=== PATIENT | female | born 1995 | race Caucasian/White ===

== ENCOUNTER → 2019-08-14 11:48 | Outpatient (CLI) | payer BC, OTHER, MEDICAID, SELFPAY | PROVIDERS: Visit Provider Nurse Practitioner | DX: N39.0 Urinary tract infection, site not specified (principal) | CPT/HCPCS: 87077; 87086; 87186 ==

== ENCOUNTER → 2019-08-24 10:11 | Outpatient (CLI) | payer OTHER, MEDICAID, SELFPAY ==
--- NOTE | 2019-08-24 10:13 | DI.US.S_ITS ---
PROCEDURE: US OB <= 14 WEEKS FETUS INDICATIONS: DATES OUTSIDE/PRIOR DATING DATA: Last menstrual period (LMP): 06/16/19. LMP-based estimated date of delivery (CORDELL): 03/22/20. First dating scan (date and location): 08/24/19. Estimated date of delivery (CORDELL) from first dating scan: 03/12/20. TECHNIQUE: Real-time scanning was performed of the fetus and maternal pelvic organs, with image documentation. Endovaginal scanning was also performed to better visualize the fetus and maternal ovaries. COMPARISON: None. FINDINGS: Embryo: Single living intrauterine fetus is present with a crown-rump length measuring 4.4 cm, 11 weeks 2 days. heart rate measures 135 beats per minute. Yolk sac visualized Measurement variability in dating: +/- 4 weeks by LMP, +/- 7 days by mean sac diameter (use before 6 weeks gestation if crown-rump length not able to be measured), +/- 5 days by crown-rump length (up to 8 weeks 6 days gestation), +/- 7 days by crown-rump length (up to 13 weeks 6 days gestation). Maternal organs: Ovaries grossly unremarkable except for a left-sided presumed corpus luteum. Limited images through the kidneys demonstrate no hydronephrosis. IMPRESSION: Single living intrauterine fetus with gestational age of 11 weeks and 2 days by today's ultrasound measurements corresponding to an CORDELL of 03/12/20, concordant with LMP above Dictated by: Geo Staton M.D. on 08/24/2019 at 12:18 Approved by: Geo Staton M.D. on 08/24/2019 at 12:21
[2019-08-24 12:32] LABS: Add Manual Diff / Slide Review NO; Basophils Absolute Auto 100 /uL (0-100); Basophils Percent Auto 0.5 % (0-2); Eosinophils Absolute Auto 100 /uL (0-450); Eosinophils Percent Auto 0.5 % (2-4); Hematocrit 36.6 % (36-46); Hemoglobin 12.5 g/dL (12.0-16.0); Lymphocytes Absolute Auto 2200 /uL (1100-4500); Lymphocytes Percent Auto 15.8 % (25-40); Mean Corpuscular HGB Conc 34.1 % (30-36); Mean Corpuscular Hemoglobin 31.2 PG (26-34); Mean Corpuscular Volume 91.4 fL (80-100); Monocytes Absolute Auto 700 /uL (0-900); Monocytes Percent Auto 4.7 % (3-14); Neutrophils Absolute Auto 11000 /uL (1500-7000); Neutrophils Percent Auto 78.5 % (50-75); Platelet Count 298 X10^3/uL (150-400); Red Blood Cell Count 4.01 X10^6/uL (4.0-5.2); Red Cell Distribution Width 13.1 % (11.6-14.8); White Blood Cell Count 14.1 X10^3/uL (4.5-11.0)
[2019-08-24 16:28] LABS: Hepatitis B Surface Antigen NEGATIVE s/c (NEGATIVE); Rubella Antibody IgG 24.1 IU/mL (>15)
[2019-08-24 17:42] LABS: HIV 1 & 2 Ab/Ag 4th Gen Combo NEGATIVE (NEGATIVE); Hep C Virus Ab w/Reflex Quant NEGATIVE s/c (NEGATIVE)
[2019-08-26 20:35] LABS: RPR Screen Nonreactive (Nonreactive)
== END ==
PROVIDERS: Referring Provider Family Medicine; Visit Provider Family Medicine
DX: Z34.01 Encounter for supervision of normal first pregnancy, first trimester (principal); Z3A.11 11 weeks gestation of pregnancy
CPT/HCPCS: 36415; 76801; 80055; 86787; 86803; 86850; 86900; 86901; 87389

== ENCOUNTER → 2019-08-25 16:50 | Outpatient (CLI) | payer BC, OTHER, MEDICAID, SELFPAY ==
[2019-08-25 18:15] LABS: Appearance Urine UA CLEAR; Bilirubin Urine UA NEGATIVE (NEGATIVE); Color Urine UA YELLOW; Glucose Urine UA NEGATIVE (Negative); Ketones Urine UA NEGATIVE (NEGATIVE); Leukocyte Esterase Urine UA NEGATIVE (NEGATIVE); Nitrite Urine UA NEGATIVE (Negative); Occult Blood Urine UA NEGATIVE (Negative); Protein Urine UA NEGATIVE (Negative); Specific Gravity Urine UA 1.015 (1.000-1.035); Urobilinogen Urine UA 0.2 E.U./dL (0.2)
== END ==
PROVIDERS: PCP Family Medicine; Referring Provider Family Medicine; Visit Provider Family Medicine
DX: Z34.01 Encounter for supervision of normal first pregnancy, first trimester (principal)
CPT/HCPCS: 81003; 87086

== ENCOUNTER → 2019-10-27 10:59 | Outpatient (CLI) | payer BC, OTHER, MEDICAID, SELFPAY ==
--- NOTE | 2019-10-27 11:04 | DI.US.S_ITS ---
PROCEDURE: US OB >= 14 WEEKS FETUS INDICATIONS: ANATOMY SCAN OUTSIDE/PRIOR DATING DATA: Last menstrual period (LMP): 06/16/19. LMP-based estimated date of delivery (CORDELL): 03/22/20. First dating scan (date and location): 08/24/19. Estimated date of delivery (CORDELL) from first dating scan: 03/12/20. TECHNIQUE: Real-time scanning was performed of the fetus, with image documentation and biometric measurements. Endovaginal scanning: Not needed. COMPARISON: None. FINDINGS: General: A single living intrauterine gestation is present. Presentation: Vertex. Placenta: Placental position is anterior, without previa. Amniotic fluid index: 13.8 cm, normal range is 5-24 cm. heart rate: 150 beats per minute. Maternal cervical canal: 5.0 cm long. Normal lower limit is 2.5 cm. biometrics: Biparietal diameter: 4.0 cm, 18 weeks 1 day Head circumference: 15.8 cm, 18 weeks 5 days Abdominal circumference: 14.8 cm, 20 weeks 1 day Femur length: 3.2 cm, 20 weeks 1 day Estimated gestational age from initial scan: 20 weeks 3 days Composite gestational age from present scan: 19 weeks 4 days Estimated weight and percentile: 319 g, 19th percentile Measurement variability for biometric dating: +/- 7 days from 14 weeks to 15 weeks 6 days gestation, +/- 10 days from 16 weeks to 21 weeks 6 days gestation, +/- 2 weeks from 22 weeks to 27 weeks 6 days gestation, +/- 3 weeks for 28 weeks gestation or later. weight reference: 4500 g or EFW >90/95% is considered macrosomia or large for gestational age. EFW <10% is small for gestational age. EFW 5% or less is considered intra-uterine growth restriction. Anatomic survey: Neuro: Ventricles are non-dilated at less than 10 mm. Cisterna magna is normal at 3-11 mm. Cerebellum is normal in size and morphology. Nuchal skin fold: Normal at less than 6 mm between 14-21 weeks gestational age. Face: Nose and lips, facial profile are normal. Spine: No evidence for spina bifida. Heart: 4-chambered heart is present, with normal ventricular outflow tracts. Diaphragm: Diaphragm is intact. Stomach: Left-sided stomach is present. Kidneys: No hydronephrosis. Normal is less than 5 mm in 2nd trimester, less than 7 mm in 3rd trimester. Cord: 3-vessel cord has orthotopic insertion. Bladder: Normal in size. Extremities: All 4 extremities identified. IMPRESSION: Single living intrauterine gestation with delivery date projected to be centered on 03/12/20, with normal survey of anatomy and appropriate interval growth. Dictated by: Dallin Zelaya M.D. on 10/27/2019 at 15:26 Approved by: Dallin Zelaya M.D. on 10/27/2019 at 15:36
== END ==
PROVIDERS: PCP Family Medicine; Referring Provider Family Medicine; Visit Provider Family Medicine
DX: Z36.89 Encounter for other specified antenatal screening (principal); Z3A.19 19 weeks gestation of pregnancy
CPT/HCPCS: 76811

== ENCOUNTER → 2019-11-04 14:38 | Outpatient (CLI) | payer OTHER, MEDICAID, SELFPAY ==
[2019-11-06 20:39] LABS: AFP, Serum 98.2 ng/mL (.); Calc Gestational Age Ultrasound (.); Estriol, Free 3.17 ng/mL (.); Inhibin A, Dimeric 355.58 pg/mL (.); Inhibin A, MoM 1.54 (.); Maternal Ethnicity Caucasian (.); Maternal Weight 167 lbs (.); Number of Fetuses No (.); OSBR Risk 1 IN 2523 (.); Results Report (.); Test Results *Screen Negative* (.); hCG, MoM 1.24 (.); hCG, Serum 27097 mIU/mL (.)
== END ==
PROVIDERS: PCP Family Medicine; Referring Provider Family Medicine; Visit Provider Family Medicine
DX: Z34.90 Encounter for supervision of normal pregnancy, unspecified, unspecified trimester (principal); Z3A.16 16 weeks gestation of pregnancy
CPT/HCPCS: 36415; 82105; 82677; 84702; 86336

== ENCOUNTER → 2019-12-09 14:16 | Outpatient (CLI) | payer OTHER, MEDICAID, SELFPAY ==
[2019-12-09 16:19] LABS: Hemoglobin 11.1 g/dL (12.0-16.0)
[2019-12-09 16:35] LABS: GTT (PREG) 1 Hour PP 50gm Dose 147 mg/dL (76-139)
== END ==
PROVIDERS: PCP Family Medicine; Referring Provider Family Medicine; Visit Provider Family Medicine
DX: Z34.90 Encounter for supervision of normal pregnancy, unspecified, unspecified trimester (principal); Z3A.26 26 weeks gestation of pregnancy
CPT/HCPCS: 36415; 82950; 85014; 85018

== ENCOUNTER → 2019-12-17 08:25 | Outpatient (CLI) | payer OTHER, MEDICAID, SELFPAY ==
[2019-12-17 09:59] LABS: Glucose Fasting Gestational 70 mg/dL (76-95)
[2019-12-17 11:50] LABS: Glucose 2 Hour Gest 104 mg/dL (76-155)
[2019-12-17 11:50] LABS: Glucose 1 Hour Gest 104 mg/dL (76-180)
[2019-12-17 12:04] LABS: Glucose Tol Interp,Gestational INTERPRETATION
[2019-12-17 13:15] LABS: Glucose 3 Hour Gest 61 mg/dL (76-140)
== END ==
PROVIDERS: PCP Family Medicine; Referring Provider Family Medicine; Visit Provider Family Medicine
DX: R73.09 Other abnormal glucose (principal)
CPT/HCPCS: 36415; 82951; 82952

== ENCOUNTER → 2020-02-18 14:12 | Outpatient (CLI) | payer OTHER, SELFPAY ==
[2020-02-19 14:13] LABS: Strep Grp B PCR NEG for Grp B Strep
== END ==
PROVIDERS: PCP Family Medicine; Visit Provider Family Medicine
DX: Z34.90 Encounter for supervision of normal pregnancy, unspecified, unspecified trimester (principal); Z3A.36 36 weeks gestation of pregnancy
CPT/HCPCS: 87653

== ENCOUNTER → 2020-03-15 14:53 | Outpatient (CLI) | payer OTHER, SELFPAY ==
[2020-03-16 10:07] LABS: COVID19 Sendout Not Detected (Not Detect)
== END ==
PROVIDERS: PCP Family Medicine; Visit Provider Nurse Practitioner
DX: Z11.59 Encounter for screening for other viral diseases (principal)
CPT/HCPCS: 87635

== ENCOUNTER 2020-03-17 18:03 | Inpatient (IN) | payer OTHER, SELFPAY ==
[2020-03-17 19:01] LABS: Add Manual Diff / Slide Review NO; Basophils Absolute Auto 100 /uL (0-100); Basophils Percent Auto 0.6 % (0-2); Eosinophils Absolute Auto 0 /uL (0-450); Eosinophils Percent Auto 0.5 % (2-4); Hematocrit 32.2 % (36-46); Hemoglobin 10.9 g/dL (12.0-16.0); Lymphocytes Absolute Auto 2200 /uL (1100-4500); Mean Corpuscular HGB Conc 33.9 % (30-36); Mean Corpuscular Hemoglobin 31.4 PG (26-34); Mean Corpuscular Volume 92.6 fL (80-100); Monocytes Absolute Auto 500 /uL (0-900); Monocytes Percent Auto 5.1 % (3-14); Neutrophils Absolute Auto 7100 /uL (1500-7000); Neutrophils Percent Auto 71.8 % (50-75); Platelet Count 229 X10^3/uL (150-400); Red Blood Cell Count 3.48 X10^6/uL (4.0-5.2); Red Cell Distribution Width 14.1 % (11.6-14.8); White Blood Cell Count 9.9 X10^3/uL (4.5-11.0)
[2020-03-17 19:06] VITALS: BP 133/88
[2020-03-17] MEDS: DINOPROSTONE VAG (CERVIDIL) 10 MG VAG (19:45)
[2020-03-17] MEDS: ZOLPIDEM 5 MG TABLET PO (22:08)
[2020-03-18] MEDS: ACETAMINOPHEN 325 MG TABLET 650 MG PO (04:11)
--- NOTE | 2020-03-18 07:35 | P.HPOB_ITS ---
OB HPI Date/Time Date of admission: 03/17/20 Date Patient Seen: 03/18/20 Time Patient Seen: 07:20 History of Present Condition Chief complaint: EVAL OF LABOR : 3 Para: 0 Estimated Date of Delivery: 03/12/20 Estimated Gestational Age (weeks): 40w6d Narrative: Crys Dahl is a 25 year old at 40 weeks and 6 days gestation here for post-dates induction. She received Cervidil overnight. complicated by depression. At the beginning of the she completed residential treatment for depression. Depression remained stable throughout the remainder of the . She quit smoking at the beginning of as well. Indications Indication for induction OB: post dates History of Present care: good care, initiated at week # (11), number of visits (14) and pounds weight gain (29) Dating criteria: based on 1st trimester US only Ultrasounds: normal 1st trimester US and normal mid trimester US Obstetrical complications: none Medical complications: none Preadmission Labs Blood type: A (+) positive -: Antibody screen: negative, GBS status: negative, HBsAG: negative, HIV: negative and RPR/VDLR: negative -: Chlamydia screen: not detected and Gonorrhea screen: not detected -: Rubella: immune and Varicella: immune HCT: 36.6 HCAB: negative Quad screen: Normal 1 hr GTT: 147 3 hr GTT: 1 hr (104), 2 hr (104) and 3 hr (61) Fasting blood glucose: 70 Prior (ies) History: 07/11/16 D&C at 12 weeks Medical Evaluation Evaluation Baseline heart rate: 150 Variability: Moderate (11-25) monitor accelerations: Present monitor decelerations: Absent Contraction Frequency (minutes): 2 Cervical dilation (cm): 2 Cervical effacement (%): 80 station: -2 Laboratory results: Laboratory Tests 03/17/20 03/17/20 18:40 18:40 WBC 9.9 RBC 3.48 L Hgb 10.9 L Hct 32.2 L MCV 92.6 MCH 31.4 MCHC 33.9 RDW 14.1 Plt Count 229 Neut % (Auto) 71.8 Lymph % (Auto) 22.0 L [place] % (Auto) 5.1 Eos % (Auto) 0.5 L Baso % (Auto) 0.6 Neut # (Auto) 7100 H Lymph # (Auto) 2200 [place] # (Auto) 500 Eos # (Auto) 0 Baso # (Auto) 100 Blood Type A Positive Antibody Screen Negative [facility] Medical History Anemia (Acute) Anxiety disorder (Acute) Major depression (Acute) Surgical History H/O dilation and curettage (Acute) Hx of tonsillectomy (Acute ~2017) [place] teeth removed (Acute ~2014) Family History Father Hyperlipidemia Hypertension Grandfather Bladder cancer Diabetes mellitus Hyperlipidemia Hypertension Grandmother Hypothyroidism Grandmother No known health problems Grandfather Hyperlipidemia Hypertension Heavy smoker Depression Family/Other Depression Social History marital status: unmarried,living together household members: significant other pets and animals: Yes (X 2 dogs ) education level: high school occupational status: unemployed current occupational exposures/hazards: No special tanvi needs: No Smoking Status: Former smoker second hand exposure: Yes alcohol intake: former substance use type: does not use Meds Home Medications and Allergies Home Medications Medication Instructions Recorded Confirmed Type ondansetron 4 mg disintegrating 4 mg PO Q8H #14 tab 08/14/19 03/17/20 Rx tablet prenat.vits,abraham,ryo-uldo-isvar 1 tab PO DAILY 08/21/19 03/17/20 History Allergies Allergy/AdvReac Type Severity Reaction Status Date / Time egg Allergy Severe rash, Verified 03/17/20 19:13 hives, diarrhea Review of Systems Review of Systems ROS: Yes All systems reviewed with the patient and are negative except as otherwise documented Exam Vital Signs (past 8 hours): Temperature 36.8? blood pressure 129/79 heart rate 75 respirations 18 Const General: healthy appearing and comfortable [facility] Head: normal to inspection Ears: hearing grossly normal bilaterally Nose: external nose normal Face and sinus: normal facial exam Mouth: oral mucosae normal Eyes General: appearance normal, both eyes and all related structures Neck Neck: normal visual inspection Resp Effort & Inspection: normal respiratory effort Auscultation: clear to auscultation bilaterally Cardio Rate: regular rate Rhythm: regular rhythm Heart Sounds: no murmurs GI Other: Gravid External Female Exam: normal external appearance Manual OB Exam: dilated 2, effaced (80) and station -2 Presentation: vertex Estimated Weight (lbs): 7 Back/Spine/Pelvis Back: normal to inspection Skin General: no rashes or lesions noted Extrem General: normal to inspection and no pedal edema Objective Labs Result Diagrams: 03/17/20 18:40 Labs: Laboratory Results - last 24 hr 03/17/20 03/17/20 18:40 18:40 WBC 9.9 RBC 3.48 L Hgb 10.9 L Hct 32.2 L MCV 92.6 MCH 31.4 MCHC 33.9 RDW 14.1 Plt Count 229 Neut % (Auto) 71.8 Lymph % (Auto) 22.0 L [place] % (Auto) 5.1 Eos % (Auto) 0.5 L Baso % (Auto) 0.6 Neut # (Auto) 7100 H Lymph # (Auto) 2200 [place] # (Auto) 500 Eos # (Auto) 0 Baso # (Auto) 100 Blood Type A Positive Antibody Screen Negative Assessment and Plan Assessment and Plan Assessment and Plan narrative: 25-year-old at 40 weeks and 6 days gestation admitted for post-dates induction. She progressed well with Cervidil overnight and Schmidt score is now 7. She is sandi spontaneously. GBS negative, COVID-19 negative. Plan Patient will shower and eat a light breakfast then start Pitocin per protocol Epidural upon request
[2020-03-18] MEDS: LACTATED RINGERS 1,000 ML 100 ML IV (08:00)
[2020-03-18] MEDS: OXYTOCIN PREMIX 30 UNIT/500 ML PLAST..BAG IV (08:53)
--- NOTE | 2020-03-18 16:05 | PM.OBPNLAB ---
Date/Time Date Patient Seen: 03/18/20 Time Patient Seen: 15:00 Pain Control Pain control: tolerating well and epidural Pelvic Exam Dilation (cm): 4 Effacement (%): 90 station: -2 Amniotic membrane status: Ruptured (small amount of clear fluid) Contractions Pitocin rate (mU/min): 18 Contraction frequency (min): 2 Contraction pattern: Regular Status status: Category l Heart Rate Baseline: 120 Monitor Accelerations: Present Monitor Decelerations: Absent Monitor Variability: Moderate Assessment and Plan Assessment: induction ongoing Plan: continuous present management Comments: Patient had a significant amount of bloody show with a moderate sized clot on the under pad. SVE with a bulging bag so blood not felt to be from rupture. AROM with a small amount of clear fluid which tolerated well. Continue pitocin.
--- NOTE | 2020-03-18 17:38 | PM.OBPNLAB ---
Date/Time Date Patient Seen: 03/18/20 Time Patient Seen: 17:15 Pain Control Pain control: epidural and other (Some lower abdominal pain/cramping) Pelvic Exam Dilation (cm): 5 Effacement (%): 100 station: -1 Amniotic membrane status: Ruptured (small amount of clear fluid) Contractions Pitocin rate (mU/min): 12 Contraction frequency (min): 2 Contraction pattern: Regular Status status: Category l Heart Rate Baseline: 120 Monitor Accelerations: Present Monitor Decelerations: Absent Monitor Variability: Moderate Assessment and Plan Assessment: induction ongoing Plan: continuous present management
[2020-03-18] MEDS: ONDANSETRON 4 MG/2 ML INJ IV (19:01)
[2020-03-18] MEDS: FENT 2MCG/ML BUPIV 0.125% EPI 200 MCG/100 ML PLAST..BAG 10 MCG EPIDURAL (19:05)
--- NOTE | 2020-03-18 21:01 | P.PCNOB_ITS ---
Labor & Delivery Delivery date: 03/18/20 Cervical ripening method: per Cervidil protocol Induction method: per pitocin protocol Delivery augmentation: rupture of membranes Delivery monitor: external FHT Route of delivery: L&D Laceration Description: None Estimated blood loss (mL): 150 Anesthesia type: Epidural Narrative: Patient is a 25-year-old at 40 weeks and 6 days gestation who gave on 03/17/20 at 20:45. CORDELL: 03/12/2020 Hospital problems: 40 weeks of Epidural analgesia STAGE I: Labor Patient received Cervidil for cervical ripening followed by Pitocin per protocol. Patient received an epidural with excellent pain control. Artificial rupture membranes occurred at 3:00 p.m. with a small amount of clear fluid. heart tones were category a 1 and 2 throughout stage I due to occasional variable decelerations. STAGE II: Delivery Patient was complete at 8:07 p.m. and began pushing at 8:15 p.m.. Spontaneous vaginal delivery occurred at 8:45 p.m.. Infant was vertex and BRINDA. There was a nuchal cord x1 which was reduced then remainder of infant delivered easily. was immediately placed on mother's abdomen. Cord was clamped and cut after several minutes delay. Apgars were 7 and 9 at 1 and 5 minutes respectively. No resuscitation of the required. STAGE III: Placenta/Cord Placenta delivered at 8:53 a.m. after active management and appeared intact with a three-vessel cord. Pitocin bolus given after delivery placenta. Placenta was noted to have diffuse calcifications. Fundus was firm well below umbilicus after delivery. There were no vaginal, cervical or perineal lacerations. EBL: 150 mL. Needle and sponge counts were correct. The vagina was inspected and no items were left in situ. Patient was doing well with [place], her and friend at bedside. [place] Baby 1: Infant gender: Female Presentation: vertex Placenta delivery description: Spontaneous cord vessel description: Nuchal Cord (x1, reduced) score (1 min): 7 score (5 min): 9
[2020-03-19] MEDS: IBUPROFEN 600 MG TABLET PO ×2 (03:42→16:29)
[2020-03-19] MEDS: PRENATAL VIT,CALC/IRON/FOLIC 1 TABLET 1 TAB PO (08:24)
[2020-03-19] MEDS: DOCUSATE 100 MG CAPSULE PO (08:24)
[2020-03-19] MEDS: ACETAMINOPHEN 325 MG TABLET 650 MG PO (08:25)
--- NOTE | 2020-03-19 09:41 | P.PNOB_ITS ---
Subjective - OB Subjective Patient comments: no complaints, pain well controlled and tolerating diet baby status: doing well and nursing well feeding status: exclusively breast feeding Date Patient Seen: 03/19/20 Time Patient Seen: 09:25 Interval history: Patient denies complaints this morning. She notes some cramping with breast-feeding which is tolerable. Pain controlled with Tylenol and ibuprofen. Bleeding is moderate. She is ambulating and voiding without difficulty. Some difficulty with breast-feeding however due to tongue tie. Exam Vital Signs (past 8 hours): Temperature 97.5 blood pressure 118/74 heart rate 63 Narrative Exam Narrative: General: Awake and alert, no acute distress. HEENT: NCAT, EOMI, moist oral mucosa CV: Regular rate and rhythm, no murmurs, rubs or gallops Lungs: CTAB, no wheezes, rales, or rhonchi Abdomen: Soft, nontender; bowel tones active; uterus firm 2 cm below umbilicus Extremities: Warm, no edema, 2+ pedal pulses bilaterally Objective Labs Result Diagrams: 03/17/20 18:40 Assessment & Plan Assessment and Plan (1) Spontaneous vaginal delivery: Status: Acute (2) 40 weeks gestation of : Status: Acute Plan day: 1 plan OB: routine care Comments: Doing well after uncomplicated vaginal delivery night. Routine care. Anticipate discharge home tomorrow. Time Spent With Patient Time: Total time spent is greater than 50% in coordination of care (as doc umented) at patient's floor/unit and/or counseling patient: Time with patient: 15-24 minutes
--- NOTE | 2020-03-20 07:57 | P.DS_ITS ---
Discharge Providers Provider Date of admission: 03/17/20 18:03 Discharge Date: 03/20/20 Primary care physician: Jacqueline Sadler DO Consults: 03/19/20 21:03 Consult to [employer] Routine Comment: Discharge provider: Jacqueline Sadler DO Summary Hospital Course Date Patient Seen: 03/20/20 Time Patient Seen: 08:58 Procedures: Spontaneous vaginal delivery Epidural analgesia Hospital Course: Patient is a 25-year-old now 1 after uncomplicated spontaneous vaginal delivery at 40 weeks and 6 days gestation on 03/18/20. Patient was brought in for post-dates induction and progressed after Cervidil and Pitocin. She received an epidural with excellent pain control and went on to deliver a vigorous female . There were no lacerations following delivery. course was uncomplicated. Vaginal bleeding was light to moderate and pain controlled with minimal ibuprofen. She was eating, ambulating, voiding and passing flatus. There was some difficulty with breast-feeding which improved after infant underwent a frenotomy. Advised patient to call for fevers, severe pain or bleeding through more than a pad an hour. She will follow-up in clinic in 6 weeks but we will also be seeing her when she brings in her period Peripartum Data Infant Delivery Method: Natural Vaginal Laceration Description: None complications: none [place] 1: Gender: Female Disposition of : home Discharge Diagnosis (1) Spontaneous vaginal delivery: Status: Acute (2) 40 weeks gestation of : Status: Acute Status at Discharge Cognitive/behavioral status at discharge: at baseline, oriented Overall status at discharge: patient is back to baseline Time Spent with Patient Time attestation: Total time spent providing and/or coordinating discharge servi abdias: Time spent: Less than 30 minutes Objective Labs Result Diagrams: 03/17/20 18:40 Exam Vital Signs (past 8 hours): Temperature 98.9? blood pressure 120/74 heart rate 73 resp irations 12 Narrative Exam Narrative: General: Awake and alert, no acute distress. HEENT: NCAT, EOMI, moist oral mucosa CV: Regular rate and rhythm, no murmurs, rubs or gallops Lungs: CTAB, no wheezes, rales, or rhonchi Abdomen: Soft, nontender; bowel tones active; uterus firm 2 cm below umbilicus Extremities: Warm, no edema Discharge Plan Discharge Plan Patient Disposition: Home Discharge orders & Medications Prescriptions: New docusate sodium [DOK] 100 mg Capsule 100 mg PO DAILY Qty: 30 RF: 0 ibuprofen 600 mg Tablet 600 mg PO Q6HR PRN (Reason: Pain, Mild (1-3)) Qty: 30 RF: 0 Continued ondansetron 4 mg tablet,disintegrating 4 mg PO Q8H Qty: 14 RF: 0 prenat.vits,abraham,gem-sldz-izvay Tablet 1 tab PO DAILY RF: 0 Follow up/Referrals: Jacqueline Sadler DO [Primary Care Provider] - Diet/Activity/Treatments Diet: Diet as Tolerated Skin/Wound/Dressing Care Report to your healthcare provider any signs of infection, such as:: chills, fever, night sweats, increased pain, unusual drainage and unusual redness Visit Report/Discharge Packet Visit Report Forms: Patient Portal/API, Stroke Signs & Symptoms Discharge Data Primary Care Provider: Jacqueline Sadler
[2020-03-20] MEDS: DOCUSATE 100 MG CAPSULE PO (09:10)
[2020-03-20] MEDS: PRENATAL VIT,CALC/IRON/FOLIC 1 TABLET 1 TAB PO (09:10)
[2020-03-20 10:16] VITALS: BP 127/84; PULSE 69; RESP 18; TEMP 36.9
== END 2020-03-20 11:38 | disposition home or self-care (01) | DRG 807 ==
PROVIDERS: Admitting Provider Family Medicine; PCP Family Medicine; Referring Provider Family Medicine; Visit Provider Family Medicine
DX: O48.0 Post-term pregnancy (principal); Z37.0 Single live birth; Z3A.40 40 weeks gestation of pregnancy; O99.344 Other mental disorders complicating childbirth
CPT/HCPCS: 01967; 59050; 59200; 59410; 85025; 86850; 86900; 86901; G0379; J2405; J2590

== ENCOUNTER 2020-03-23 21:37 | Emergency (ER) | payer OTHER, SELFPAY ==
[2020-03-23] VITALS (7 sets, daily range): BP systolic 124–137; BP diastolic 74–82; PULSE 64–87; RESP 15–36; TEMP 37.1; O2SAT 96–99; BMI 29.8
[2020-03-23] MEDS: SODIUM CHLORIDE 0.9% 1,000 ML 1000 ML IV (22:38)
[2020-03-23 22:41] LABS: Add Manual Diff / Slide Review NO; Basophils Absolute Auto 100 /uL (0-100); Eosinophils Absolute Auto 200 /uL (0-450); Eosinophils Percent Auto 2.2 % (2-4); Hematocrit 32.3 % (36-46); Lymphocytes Absolute Auto 1600 /uL (1100-4500); Lymphocytes Percent Auto 19.2 % (25-40); Mean Corpuscular Hemoglobin 31.7 PG (26-34); Mean Corpuscular Volume 93.2 fL (80-100); Monocytes Absolute Auto 400 /uL (0-900); Monocytes Percent Auto 5.3 % (3-14); Neutrophils Absolute Auto 5900 /uL (1500-7000); Neutrophils Percent Auto 72.3 % (50-75); Platelet Count 235 X10^3/uL (150-400); Red Blood Cell Count 3.46 X10^6/uL (4.0-5.2); Red Cell Distribution Width 14.3 % (11.6-14.8); White Blood Cell Count 8.1 X10^3/uL (4.5-11.0)
[2020-03-23 22:50] LABS: Alanine Aminotransferase 81 IU/L (<35); Albumin 3.7 g/dL (3.5-5.0); Albumin Globulin Ratio 1.2 (1.0-2.8); Alkaline Phosphatase 138 U/L (38-126); Aspartate Aminotransferase 58 IU/L (14-36); BUN Creatinine Ratio 17.9 (6-22); Bilirubin Total 0.4 mg/dL (0.2-1.3); Blood Urea Nitrogen 15 mg/dL (7-17); Calcium 8.5 mg/dL (8.4-10.2); Carbon Dioxide 24 mmol/L (22-32); Chloride 107 mmol/L (98-107); D Dimer 339 ng/mL (<230); Estimated Glomerular Filt Rate > 60.0 mL/min (>60); Glucose 72 mg/dL (70-100); HEMOLYSIS < 15 (0-50); Lipase 47 U/L (23-300); Potassium 3.6 mmol/L (3.4-5.1); Sodium 137 mmol/L (137-145); Total Protein 6.7 g/dL (6.3-8.2)
[2020-03-23 23:00] LABS: Bilirubin Urine UA NEGATIVE (NEGATIVE); Color Urine UA YELLOW; Glucose Urine UA NEGATIVE (Negative); Ketones Urine UA NEGATIVE (NEGATIVE); Leukocyte Esterase Urine UA 1+ (NEGATIVE); Nitrite Urine UA NEGATIVE (Negative); Occult Blood Urine UA 3+ (Negative); Protein Urine UA NEGATIVE (Negative); Specific Gravity Urine UA <=1.005 (1.000-1.035); Urobilinogen Urine UA 0.2 E.U./dL (0.2)
[2020-03-23 23:01] LABS: Appearance Urine UA Slightly Cloudy; RBC Urine 1-5/HPF (0-5/HPF); WBC Urine 1-5/HPF (0-5/HPF)
[2020-03-23 23:02] LABS: Troponin I < 0.012 ng/mL (0.01-0.034)
[2020-03-23 23:02] LABS: Bacteria Urine Few (2-10); Culture Indicated Urine Specimen Cultured; Squamous Epithelial Cell Urine 1-5 /HPF (0-5/HPF)
--- NOTE | 2020-03-23 23:19 | ED_ITS ---
HPI - Chest Pain General Chief Complaint: Chest Pain Stated Complaint: Chest Pain 5 days Time Seen by Provider: 03/23/20 21:41 Source: patient and family Mode of arrival: Ambulatory Limitations: no limitations History of Present Illness HPI narrative: 25-year-old 5 days after spontaneous vaginal delivery presents with substernal chest pain that is been present for 3 days and pain in the left breast that is been developing over the last 24 hours. No fevers, chills she does note some mild dyspnea when walking up stairs but otherwise is feeling well. Breast-feeding is going moderately well however she is having some difficulty with cracked nipples and does not appear to be latching come to the nipple. That is the problem with the left breast there is significant cracking and bleeding that breast is become quite engorged and she is trying to pump on that side with a manual hand pump. She describes no lower extremity edema and specifically no unilateral lower extremity edema. Related Data Home Medications Medication Instructions Recorded Confirmed prenat.vits,abraham,[id number] 1 tab PO DAILY 08/21/19 03/17/20 Previous Rx's Medication Instructions Recorded ondansetron 4 mg disintegrating 4 mg PO Q8H #14 tab 08/14/19 tablet docusate sodium [DOK] 100 mg PO DAILY #30 cap 03/20/20 ibuprofen 600 mg PO Q6HR PRN #30 tab 03/20/20 Allergies Allergy/AdvReac Type Severity Reaction Status Date / Time egg Allergy Severe rash, Verified 03/17/20 19:13 hives, diarrhea Review of Systems Review of Systems Narrative: Remainder of review of systems including constitutional, ENT, cardiovascular, respiratory, GI, , musculoskeletal, skin, neurologic and psychiatric systems reviewed and are unremarkable except as noted in HPI. Patient History Medical History Anemia (Acute) Anxiety disorder (Acute) Major depression (Acute) Spontaneous vaginal delivery (Acute) Surgical History H/O dilation and curettage (Acute) Hx of tonsillectomy (Acute ~2017) Leslie teeth removed (Acute ~2014) Family History Father Hyperlipidemia Hypertension Grandfather Bladder cancer Diabetes mellitus Hyperlipidemia Hypertension Grandmother Hypothyroidism Grandmother No known health problems Grandfather Hyperlipidemia Hypertension Heavy smoker Depression Family/Other Depression Social History marital status: unmarried,living together household members: significant other pets and animals: Yes (X 2 dogs ) education level: high school occupational status: unemployed current occupational exposures/hazards: No special tanvi needs: No Smoking Status: Former smoker second hand exposure: Yes alcohol intake: former substance use type: does not use Smoking Status: Former smoker Substance Use Type: does not use Exam Narrative Exam Narrative: General: Healthy appearing, in no acute distress. Able to give a complete and coherent history. Well-nourished well-developed HEENT: Moist mucous membranes, normal sclera with reactive pupils, Neck: No JVD, supple Respiratory: Lungs are clear to auscultation, no wheezing no rales no rhonchi. Full and symmetrical air movement Cardiac: Regular rate and rhythm no murmurs no bruits, she has no tenderness along the costochondral border Breasts: Mild nipple cracking on the right side, increased cracking and mild engorgement on the left side with no sign of acute mastitis with increased erythema or warmth Abdomen: Soft nontender good bowel tones, no flank pain Skin: Warm and dry, no rashes Neurologic: Grossly neurologically intact with no obvious asymmetries or abnormalities Extremities: No trauma, well perfused Psych: Cooperative, appropriate insight and affect Initial Vital Signs Initial Vital Signs: Vital Signs Pulse Rate 68 03/23/20 21:48 Blood Pressure 137/74 03/23/20 21:48 Pulse Oximetry 99 03/23/20 21:48 Scores ABCD2 Citation: Lancet. 2006Aug 10;369(4715):283-92. Validation and refinement of scores to predict very early stroke risk after transient ischaemic attack. Chung SC1, Galo PM, Beto MN, Jm MF, Arnoldo JS, Osvaldo AL, Anirudh S. Course Orders Ordered: ED Orders 03/23/20 21:40 EKG-12 Lead Stat 03/23/20 22:15 Urinalysis and Microscopic Stat Urine Culture Stat 03/23/20 22:30 Complete Blood Count AUTO DIFF Stat Comprehensive Metabolic Panel Stat D Dimer Stat Lipase Stat Troponin I Stat 03/23/20 22:43 Urinalysis Screen (Dip Only) Stat Discontinued Medications Sodium Chloride (Normal Saline 0.9%) 1,000 mls @ 1,000 mls/hr IV BOLUS ONE Stop: 03/23/20 23:14 Last Admin: 03/23/20 22:38 Dose: 1,000 mls/hr Documented by: [facility]H Vital Signs Vital signs: Vital Signs - 8 hr 03/23/20 21:48 03/23/20 21:57 03/23/20 22:11 Temperature 98.8 F Pulse Rate 68 68 64 Respiratory Rate 15 Blood Pressure 137/74 137/74 Pulse Oximetry 99 99 98 03/23/20 22:12 03/23/20 22:30 03/23/20 23:00 Temperature Pulse Rate 69 72 87 Respiratory Rate 27 H 21 36 H Blood Pressure 124/82 Pulse Oximetry 97 96 98 03/23/20 23:30 03/24/20 00:00 03/24/20 00:30 Temperature Pulse Rate 76 76 70 Respiratory Rate 16 33 H 18 Blood Pressure Pulse Oximetry 03/24/20 00:31 Temperature Pulse Rate 68 Respiratory Rate 17 Blood Pressure 127/59 L Pulse Oximetry 99 MDM - Chest Pain Medical Records Data Attestation: I reviewed the patient's medical records. Lab Data Attestation: I reviewed the patient's lab results. Result diagrams: 03/23/20 22:30 03/23/20 22:30 Labs: Lab Results 03/23/20 03/23/20 03/23/20 Range/Units 22:15 22:30 22:30 WBC 8.1 (4.5-11.0) X10^3/uL RBC 3.46 L (4.0-5.2) X10^6/uL Hgb 11.0 L (12.0-16.0) g/dL Hct 32.3 L (36-46) % MCV 93.2 (80-100) fL MCH 31.7 (26-34) PG MCHC 34.0 (30-36) % RDW 14.3 (11.6-14.8) % Plt Count 235 (150-400) X10^3/uL Neut % (Auto) 72.3 (50-75) % Lymph % (Auto) 19.2 L (25-40) % [place] % (Auto) 5.3 (3-14) % Eos % (Auto) 2.2 (2-4) % Baso % (Auto) 1.0 (0-2) % Neut # (Auto) 5900 (2677-6384) /uL Lymph # (Auto) 1600 (3424-0172) /uL [place] # (Auto) 400 (0-900) /uL Eos # (Auto) 200 (0-450) /uL Baso # (Auto) 100 (0-100) /uL D-Dimer 339 H (<230) ng/mL Sodium (137-145) mmol/L Potassium (3.4-5.1) mmol/L Chloride (98-107) mmol/L Carbon Dioxide (22-32) mmol/L BUN (7-17) mg/dL Creatinine (0.52-1.04) mg/dL Estimated GFR (>60) mL/min BUN/Creatinine Ratio (6-22) Glucose (70-100) mg/dL Calcium (8.4-10.2) mg/dL Total Bilirubin (0.2-1.3) mg/dL AST (14-36) IU/L ALT (<35) IU/L Alkaline Phosphatase (38-126) U/L Troponin I (0.01-0.034) ng/mL Total Protein (6.3-8.2) g/dL Albumin (3.5-5.0) g/dL Globulin (1.7-4.1) g/dL Albumin/Globulin Ratio (1.0-2.8) Lipase (23-300) U/L Urine Color Yellow Urine Appearance Slightly cloudy Urine pH 7.0 (4.5-8.0) Ur Specific [place] <=1.005 (1.000-1.035) Urine Protein Negative (Negative) Urine Glucose (UA) Negative (Negative) g/dL Urine Ketones Negative (NEGATIVE) Urine Occult Blood 3+ H (Negative) Urine Nitrate Negative (Negative) Urine Bilirubin Negative (NEGATIVE) Urine Urobilinogen 0.2 (0.2) E.U./dL Ur Leukocyte Esterase 1+ H (NEGATIVE) Urine RBC 1-5/hpf (0-5/HPF) Urine WBC 1-5/hpf (0-5/HPF) Ur Squamous Epith Cells 1-5 /hpf (0-5/HPF) Urine Bacteria Few (2-10) H (None) Ur Culture Indicated? Specimen cultured 03/23/20 Range/Units 22:30 WBC (4.5-11.0) X10^3/uL RBC (4.0-5.2) X10^6/uL Hgb (12.0-16.0) g/dL Hct (36-46) % MCV (80-100) fL MCH (26-34) PG MCHC (30-36) % RDW (11.6-14.8) % Plt Count (150-400) X10^3/uL Neut % (Auto) (50-75) % Lymph % (Auto) (25-40) % [place] % (Auto) (3-14) % Eos % (Auto) (2-4) % Baso % (Auto) (0-2) % Neut # (Auto) (6381-2988) /uL Lymph # (Auto) (8668-9420) /uL [place] # (Auto) (0-900) /uL Eos # (Auto) (0-450) /uL Baso # (Auto) (0-100) /uL D-Dimer (<230) ng/mL Sodium 137 (137-145) mmol/L Potassium 3.6 (3.4-5.1) mmol/L Chloride 107 (98-107) mmol/L Carbon Dioxide 24 (22-32) mmol/L BUN 15 (7-17) mg/dL Creatinine 0.84 (0.52-1.04) mg/dL Estimated GFR > 60.0 (>60) mL/min BUN/Creatinine Ratio 17.9 (6-22) Glucose 72 (70-100) mg/dL Calcium 8.5 (8.4-10.2) mg/dL Total Bilirubin 0.4 (0.2-1.3) mg/dL AST 58 H (14-36) IU/L ALT 81 H (<35) IU/L Alkaline Phosphatase 138 H (38-126) U/L Troponin I < 0.012 (0.01-0.034) ng/mL Total Protein 6.7 (6.3-8.2) g/dL Albumin 3.7 (3.5-5.0) g/dL Globulin 3.0 (1.7-4.1) g/dL Albumin/Globulin Ratio 1.2 (1.0-2.8) Lipase 47 (23-300) U/L Urine Color Urine Appearance Urine pH (4.5-8.0) Ur Specific [place] (1.000-1.035) Urine Protein (Negative) Urine Glucose (UA) (Negative) g/dL Urine Ketones (NEGATIVE) Urine Occult Blood (Negative) Urine Nitrate (Negative) Urine Bilirubin (NEGATIVE) Urine Urobilinogen (0.2) E.U./dL Ur Leukocyte Esterase (NEGATIVE) Urine RBC (0-5/HPF) Urine WBC (0-5/HPF) Ur Squamous Epith Cells (0-5/HPF) Urine Bacteria (None) Ur Culture Indicated? Urine Dip Bedside Urine Glucose Negative Bedside Urine Bilirubin - Negative Bedside Urine Ketone - Negative Urine Specific [place] 1.010 Bedside Urine Occult Blood +++ Bedside Urine pH 7.0 Bedside Urine Protein - Negative Bedside Urine Urobilinogen +/- 1mg Bedside Urine Nitrite - Negative Bedside Urine Leukocytes +++ 500 Esterase MDM Narrative Medical decision making narrative: Labs are reassuring. D-dimer is slightly elevated as would be expected 5 days . Without unilateral edema or tachycardia at baseline I do not suspect PE at this time. In watching her breast feed the physical contortion she is putting herself into to appropriately position herself rather than position the baby is likely the cause of her chest pain. We talked about continuing pumping and I did help her with latch and positioning of the child did seem to be doing better. Will encourage her to follow-up with her primary care physician. If she is continuing to have difficulty with breast-feeding would strongly encourage a consult. Discharge Plan Departure Patient Disposition: Home Clinical Impression: Chest pain, musculoskeletal, Difficulty of mother performing Instructions: DI for Atypical Chest Pain Activity Restrictions/Additional Instructions: Thank you for coming in today I think a lot of your chest pain is simply musculoskeletal from you trying to adjust to nurse your baby. Trying make a point of using all of your pillows and supports to adjust your baby so that you are in a comfortable position when you start breast feeding. You need to encourage your baby to latch onto the full areola and not just the tip of your nipple, this will help with the cracked painful bleeding nipples that you are currently experiencing. Using moist tea bags over nipples can sometimes help with the tenderness as well. Over the next 24 hours please make sure you are being aggressive about using your hand pump with your left breast so that it is not getting engorged but allowing that nipple time to heal before you try latching again. If things are continuing to be problematic, please contact your doctor and look into consultation I wish you the best Prescriptions: No Action ondansetron 4 mg tablet,disintegrating 4 mg PO Q8H Qty: 14 RF: 0 prenat.vits,abraham,[id number] Tablet 1 tab PO DAILY RF: 0 docusate sodium [DOK] 100 mg Capsule 100 mg PO DAILY Qty: 30 RF: 0 ibuprofen 600 mg Tablet 600 mg PO Q6HR PRN (Reason: Pain, Mild (1-3)) Qty: 30 RF: 0 Referrals: Jacqueline Sadler DO [Primary Care Provider] -
[2020-03-24] VITALS: PULSE 76; RESP 33
--- NOTE | 2020-03-24 | PC.NURSE ---
L&D RN at bedside to consult pt on breasfeeding and latching techniques.
[2020-03-24 00:30] VITALS: PULSE 70; RESP 18
[2020-03-24 00:31] VITALS: BP 127/59; PULSE 68; RESP 17; O2SAT 99
[2020-03-24 01:01] VITALS: TEMP 37.2
== END 2020-03-24 01:02 | disposition home or self-care (01) ==
PROVIDERS: Emergency Provider Emergency Medicine; PCP Family Medicine
DX: R07.89 Other chest pain (principal); Z39.1 Encounter for care and examination of lactating mother; R06.00 Dyspnea, unspecified
CPT/HCPCS: 36415; 80053; 81001; 81003; 83690; 84484; 85025; 85379; 87077; 87086; 93005; 96360; 96361; 99284

== ENCOUNTER → 2020-03-30 16:04 | Outpatient (CLI) | payer OTHER, SELFPAY | PROVIDERS: PCP Family Medicine; Visit Provider Physician Assistant | DX: O86.4 Pyrexia of unknown origin following delivery (principal); R50.9 Fever, unspecified | CPT/HCPCS: 87086 ==

== ENCOUNTER → 2020-09-06 11:26 | Outpatient (CLI) | payer OTHER, MEDICAID, SELFPAY ==
[2020-09-06 12:31] LABS: BUN Creatinine Ratio 29.2 (6-22); Blood Urea Nitrogen 19 mg/dL (7-17); Calcium 9.3 mg/dL (8.4-10.2); Chloride 102 mmol/L (98-107); Estimated Glomerular Filt Rate > 60.0 mL/min (>60); HEMOLYSIS < 15 (0-50); Potassium 4.1 mmol/L (3.4-5.1); Sodium 137 mmol/L (137-145)
[2020-09-06 12:36] LABS: Carbon Dioxide 31 mmol/L (22-32)
[2020-09-06 12:37] LABS: Glucose 83 mg/dL (70-100)
== END ==
PROVIDERS: PCP Family Medicine; Referring Provider Family Medicine; Visit Provider Family Medicine
DX: R63.1 Polydipsia (principal)
CPT/HCPCS: 36415; 80048

== ENCOUNTER → 2020-11-22 12:07 | Outpatient (CLI) | payer OTHER, SELFPAY | PROVIDERS: PCP Family Medicine; Visit Provider Physician Assistant | DX: L03.031 Cellulitis of right toe (principal) | CPT/HCPCS: 87070; 87075; 87077; 87147; 87186; 87205 ==

== ENCOUNTER → 2021-01-19 16:19 | Outpatient (CLI) | payer OTHER, MEDICAID, SELFPAY ==
[2021-01-19 16:35] LABS: Add Manual Diff / Slide Review NO; Basophils Absolute Auto 100 /uL (0-100); Basophils Percent Auto 0.7 % (0-2); Eosinophils Absolute Auto 100 /uL (0-450); Eosinophils Percent Auto 1.8 % (2-4); Hematocrit 39.9 % (36-46); Hemoglobin 13.5 g/dL (12.0-16.0); Lymphocytes Absolute Auto 2300 /uL (1100-4500); Lymphocytes Percent Auto 30.1 % (25-40); Mean Corpuscular HGB Conc 33.8 % (30-36); Mean Corpuscular Hemoglobin 31.2 PG (26-34); Mean Corpuscular Volume 92.3 fL (80-100); Monocytes Absolute Auto 400 /uL (0-900); Monocytes Percent Auto 5.2 % (3-14); Neutrophils Absolute Auto 4700 /uL (1500-7000); Neutrophils Percent Auto 62.2 % (50-75); Platelet Count 230 X10^3/uL (150-400); Red Blood Cell Count 4.33 X10^6/uL (4.0-5.2); Red Cell Distribution Width 13.9 % (11.6-14.8); White Blood Cell Count 7.6 X10^3/uL (4.5-11.0)
[2021-01-19 16:50] LABS: Alanine Aminotransferase 21 IU/L (<35); Albumin 4.6 g/dL (3.5-5.0); Albumin Globulin Ratio 1.5 (1.0-2.8); Alkaline Phosphatase 75 U/L (38-126); Aspartate Aminotransferase 27 IU/L (14-36); BUN Creatinine Ratio 22.1 (6-22); Bilirubin Total 0.5 mg/dL (0.2-1.3); Blood Urea Nitrogen 15 mg/dL (7-17); Calcium 9.3 mg/dL (8.4-10.2); Carbon Dioxide 24 mmol/L (22-32); Chloride 107 mmol/L (98-107); Estimated Glomerular Filt Rate > 60.0 mL/min (>60); Glucose 97 mg/dL (70-100); HEMOLYSIS < 15 (0-50); Lipase 58 U/L (23-300); Potassium 3.9 mmol/L (3.4-5.1); Sodium 138 mmol/L (137-145); Total Protein 7.6 g/dL (6.3-8.2)
== END ==
PROVIDERS: PCP Family Medicine; Referring Provider Physician Assistant; Visit Provider Physician Assistant
DX: R19.7 Diarrhea, unspecified (principal)
CPT/HCPCS: 36415; 80053; 83690; 85025; 87045; 87077; 87177; 87899

== ENCOUNTER 2021-01-20 07:48 | Emergency (ER) | payer OTHER, MEDICAID, SELFPAY ==
[2021-01-20 08:00] VITALS: BP 138/67; PULSE 60; RESP 20; TEMP 36.6; O2SAT 99
--- NOTE | 2021-01-20 10:04 | ED.ABDPAIN ---
HPI - Abdominal Pain General Chief Complaint: Abdominal Pain Stated Complaint: appendicitis possibly/stomach pain/nausea Time Seen by Provider: 01/20/21 08:27 Source: patient Mode of arrival: Ambulatory Limitations: no limitations History of Present Illness HPI narrative: Patient is a 25-year-old female who presents with right lower quadrant pain ongoing for last 2 days. This episode started in her umbilical area moved to her right lower side. She was seen and evaluated walk-in clinic yesterday she had blood work and pain intensified today so she was sent to the ED for further imaging. She denies any nausea vomiting. It does hurt when she moves. She has had some diarrhea over the last day as well but it seems to have gotten better. She denies any vaginal discharge. She states menstrual cycle is quite irregular and has an IUD. Related Data Home Medications Medication Instructions Recorded Confirmed levonorgestrel 20 mcg/24 hours (6 INTRAUTERINE 09/22/20 01/19/21 yrs) 52 mg intrauterine device (Mirena) Previous Rx's Medication Instructions Recorded sertraline 50 mg tablet 50 mg PO DAILY #30 tab 12/27/20 ondansetron 4 mg disintegrating 4 mg PO Q6-8H PRN #30 tab 01/19/21 tablet Allergies Allergy/AdvReac Type Severity Reaction Status Date / Time egg Allergy Severe rash, Verified 01/19/21 15:51 hives, diarrhea Review of Systems Review of Systems Narrative: GENERAL: Denies chills, fatigue, malaise, fever, sweats, travel HEENT: Denies sinus pain, ear pain, sore throat, difficulty swallowing, neck pain RESPIRATORY: Denies dyspnea, cough, wheezing, hemoptysis, sputum. CARDIOVASCULAR: Denies chest pain, palpitations, orthopnea, edema GASTROINTESTINAL: See HPI : Denies dysuria, frequency, incontinence, hematuria, urinary retention, flank pain. MUSCULOSKELETAL: Denies weakness, joint pain, or bony pain SKIN: No rash, no erythema, no pruritus NEUROLOGIC: Denies weakness, dizziness, headache, numbness, change in speech, confusion PSYCHIATRIC: No concerning psychosocial issues. 12 point review of systems is negative except for those stated above and HPI Patient History Medical History (Updated 01/20/21 @ 12:23 by Tati Montanez DO) Anemia Anxiety disorder Major depression Paronychia of toe Spontaneous vaginal delivery Surgical History H/O dilation and curettage Hx of tonsillectomy (~2017) [place] teeth removed (~2014) Family History Father Hyperlipidemia Hypertension Grandfather Bladder cancer Diabetes mellitus Hyperlipidemia Hypertension Grandmother Hypothyroidism Grandmother No known health problems Grandfather Hyperlipidemia Hypertension Heavy smoker Depression Family/Other Depression Social History marital status: unmarried,living together household members: significant other pets and animals: Yes (X 2 dogs ) education level: high school occupational status: unemployed current occupational exposures/hazards: No special tanvi needs: No Smoking Status: Former smoker second hand exposure: Yes alcohol intake: former substance use type: does not use Smoking Status: Former smoker alcohol intake frequency: a few times a month Substance Use Type: does not use Exam Initial Vital Signs Initial Vital Signs: Vital Signs Temperature 97.9 F 01/20/21 08:00 Pulse Rate 60 01/20/21 08:00 Respiratory Rate 20 01/20/21 08:00 Blood Pressure 138/67 01/20/21 08:00 Pulse Oximetry 99 01/20/21 08:00 GENERAL: Well-appearing, well-nourished and in no acute distress. HEENT: Head atraumatic,EOMI, pupils reactive, face symmetric, moist mucous membranes CARDIOVASCULAR: Regular rate and rhythm without murmurs, rubs or gallops. RESPIRATORY: Breath sounds equal bilaterally, no wheezes rales or rhonchi. ABDOMEN: Soft, mild tenderness right lower quadrant without guarding or rebound EXTREMITIES: Normal range of motion, no clubbing or edema. Neurovascularly intact NEUROLOGICAL: Alert and oriented x4.Normal gait and speech. SKIN: Warm, dry, no laceration, no petechiae, no rashes or lesions. Course Orders Ordered: ED Orders 01/20/21 10:11 CT abdomen pelvis w con Stat 01/20/21 10:22 COVID19 -Nasal swab/Pre-Proc Stat 01/20/21 11:11 US pelvic complete Stat Discontinued Medications Sodium Chloride (Normal Saline 0.9%) 1,000 mls @ 1,000 mls/hr IV BOLUS ONE Stop: 01/20/21 09:12 Last Infusion: 01/20/21 12:56 Dose: 0 mls/hr Documented by: Admin: 01/20/21 10:16 Dose: 1,000 mls/hr Documented by: KAT Ondansetron HCl (Ondansetron 4 Mg/2 Ml Inj) 4 mg IV NOW ONE Stop: 01/20/21 08:14 Last Admin: 01/20/21 10:16 Dose: 4 mg Documented by: KAT Vital Signs Vital signs: Vital Signs - 8 hr 01/20/21 12:56 Pulse Rate 53 L Respiratory Rate 16 Blood Pressure 111/78 Pulse Oximetry 98 MDM - Abdominal Pain Lab Data Result diagrams: 01/20/21 08:13 01/20/21 08:13 Labs: Lab Results 01/20/21 01/20/21 01/20/21 Range/Units 08:13 08:13 08:13 WBC 9.9 (4.5-11.0) X10^3/uL RBC 4.37 (4.0-5.2) X10^6/uL Hgb 13.5 (12.0-16.0) g/dL Hct 40.2 (36-46) % MCV 92.0 (80-100) fL MCH 30.8 (26-34) PG MCHC 33.5 (30-36) % RDW 13.5 (11.6-14.8) % Plt Count 224 (150-400) X10^3/uL Neut % (Auto) 72.7 (50-75) % Lymph % (Auto) 20.4 L (25-40) % [place] % (Auto) 5.4 (3-14) % Eos % (Auto) 0.9 L (2-4) % Baso % (Auto) 0.6 (0-2) % Neut # (Auto) 7200 H (5242-4436) /uL Lymph # (Auto) 2000 (9754-1296) /uL [place] # (Auto) 500 (0-900) /uL Eos # (Auto) 100 (0-450) /uL Baso # (Auto) 100 (0-100) /uL Sodium 139 (137-145) mmol/L Potassium 3.8 (3.4-5.1) mmol/L Chloride 105 (98-107) mmol/L Carbon Dioxide 26 (22-32) mmol/L BUN 17 (7-17) mg/dL Creatinine 0.73 (0.52-1.04) mg/dL Estimated GFR > 60.0 (>60) mL/min BUN/Creatinine Ratio 23.3 H (6-22) Glucose 78 (70-100) mg/dL Lactate 0.9 (0.7-2.1) mmol/L Calcium 9.1 (8.4-10.2) mg/dL Total Bilirubin 0.6 (0.2-1.3) mg/dL AST 28 (14-36) IU/L ALT 22 (<35) IU/L Alkaline Phosphatase 85 (38-126) U/L Total Protein 7.6 (6.3-8.2) g/dL Albumin 4.7 (3.5-5.0) g/dL Globulin 2.9 (1.7-4.1) g/dL Albumin/Globulin Ratio 1.6 (1.0-2.8) Lipase 48 (23-300) U/L Urine RBC (0-5/HPF) Urine WBC (0-5/HPF) Ur Squamous Epith Cells (0-5/HPF) Amorphous Sediment Urine Bacteria (None) Urine Mucus (Negative) Ur Culture Indicated? SARS-CoV-2 (PCR) (Negative) 01/20/21 01/20/21 Range/Units 09:45 10:22 WBC (4.5-11.0) X10^3/uL RBC (4.0-5.2) X10^6/uL Hgb (12.0-16.0) g/dL Hct (36-46) % MCV (80-100) fL MCH (26-34) PG MCHC (30-36) % RDW (11.6-14.8) % Plt Count (150-400) X10^3/uL Neut % (Auto) (50-75) % Lymph % (Auto) (25-40) % [place] % (Auto) (3-14) % Eos % (Auto) (2-4) % Baso % (Auto) (0-2) % Neut # (Auto) (6711-0146) /uL Lymph # (Auto) (7764-6550) /uL [place] # (Auto) (0-900) /uL Eos # (Auto) (0-450) /uL Baso # (Auto) (0-100) /uL Sodium (137-145) mmol/L Potassium (3.4-5.1) mmol/L Chloride (98-107) mmol/L Carbon Dioxide (22-32) mmol/L BUN (7-17) mg/dL Creatinine (0.52-1.04) mg/dL Estimated GFR (>60) mL/min BUN/Creatinine Ratio (6-22) Glucose (70-100) mg/dL Lactate (0.7-2.1) mmol/L Calcium (8.4-10.2) mg/dL Total Bilirubin (0.2-1.3) mg/dL AST (14-36) IU/L ALT (<35) IU/L Alkaline Phosphatase (38-126) U/L Total Protein (6.3-8.2) g/dL Albumin (3.5-5.0) g/dL Globulin (1.7-4.1) g/dL Albumin/Globulin Ratio (1.0-2.8) Lipase (23-300) U/L Urine RBC 5-10/hpf H (0-5/HPF) Urine WBC 5-10/hpf H (0-5/HPF) Ur Squamous Epith Cells 10-30 /hpf H D (0-5/HPF) Amorphous Sediment 2+ Urine Bacteria Moderate (10-30) H (None) Urine Mucus 1+ H (Negative) Ur Culture Indicated? Cult not indicated SARS-CoV-2 (PCR) Negative (Negative) Point of care testing: Point of Care Testing Test Results Negative Urine Dip Bedside Urine Glucose Negative Bedside Urine Bilirubin - Negative Bedside Urine Ketone - Negative Urine Specific [place] 1.030 Bedside Urine Occult Blood +++ Bedside Urine pH 6.0 Bedside Urine Protein - Negative Bedside Urine Urobilinogen - Negative Bedside Urine Nitrite - Negative Bedside Urine Leukocytes - Negative Esterase Imaging Data CT scan - abdomen/pelvis: Radiologist's Impression: PROCEDURE: CT ABDOMEN PELVIS W CON INDICATIONS: right lower quad pain TECHNIQUE: After the administration of intravenous contrast, axial sections acquired from the lung bases to the pubic symphysis. Coronal and sagittal reformats were performed. For radiation dose reduction, the following was used: automated exposure control, adjustment of mA and/or kV according to patient size. COMPARISON: None. FINDINGS: Image quality: Excellent. Lung bases: Unremarkable. Heart: No significant findings. ABDOMEN: Liver: Unremarkable. Gallbladder: Unremarkable. Biliary ducts: Unremarkable. Pancreas: Unremarkable. Spleen: Unremarkable. Adrenal Glands: Unremarkable. Kidneys and Ureters: Unremarkable. Stomach and Bowel: Stomach, small bowel loops, and colon are unremarkable. Normal appendix. Peritoneum: No abnormal intraperitoneal fluid. No free air. Ventral Wall: No hernias. Abdominal Nodes: No retroperitoneal or mesenteric adenopathy by size criteria. Vessels: Aorta and inferior vena cava are normal in size. PELVIS: Pelvic Organs: The ovaries are normal size. There is a partially decompressed, peripherally hypervascular nodule measuring roughly 1.7 cm associated with the right ovary. There is an IUD within the uterus which is seated obliquely but remains within the endometrium. Bladder: The urinary bladder wall is moderately circumferentially thickened. No perivesicular inflammation or mucosal hyperemia. Pelvic Nodes: No enlarged lymph nodes. Miscellaneous: No hernias are seen. Bones: . Bilateral L5 pars defects. No anterolisthesis. IMPRESSION: 1. Probable involuting, possibly hemorrhagic right ovarian corpus luteum. 2. Slightly oblique orientation of the IUD but contained appropriately within the endometrium. 3. Normal appendix. Dictated by: Britany Lundberg M.D. on 01/20/2021 at 10:56 PROCEDURE: CT ABDOMEN PELVIS W CON INDICATIONS: right lower quad pain TECHNIQUE: After the administration of intravenous contrast, axial sections acquired from the lung bases to the pubic symphysis. Coronal and sagittal reformats were performed. For radiation dose reduction, the following was used: automated exposure control, adjustment of mA and/or kV according to patient size. COMPARISON: None. FINDINGS: Image quality: Excellent. Lung bases: Unremarkable. Heart: No significant findings. ABDOMEN: Liver: Unremarkable. Gallbladder: Unremarkable. Biliary ducts: Unremarkable. Pancreas: Unremarkable. Spleen: Unremarkable. Adrenal Glands: Unremarkable. Kidneys and Ureters: Unremarkable. Stomach and Bowel: Stomach, small bowel loops, and colon are unremarkable. Normal appendix. Peritoneum: No abnormal intraperitoneal fluid. No free air. Ventral Wall: No hernias. Abdominal Nodes: No retroperitoneal or mesenteric adenopathy by size criteria. Vessels: Aorta and inferior vena cava are normal in size. PELVIS: Pelvic Organs: The ovaries are normal size. There is a partially decompressed, peripherally hypervascular nodule measuring roughly 1.7 cm associated with the right ovary. There is an IUD within the uterus which is seated obliquely but remains within the endometrium. Bladder: The urinary bladder wall is moderately circumferentially thickened. No perivesicular inflammation or mucosal hyperemia. Pelvic Nodes: No enlarged lymph nodes. Miscellaneous: No hernias are seen. Bones: . Bilateral L5 pars defects. No anterolisthesis. IMPRESSION: 1. Probable involuting, possibly hemorrhagic right ovarian corpus luteum. 2. Slightly oblique orientation of the IUD but contained appropriately within the endometrium. 3. Normal appendix. Dictated by: Britany Lundberg M.D. on 01/20/2021 at 10:56 US - [place] OPERATOR: Radiologist's Impression: PROCEDURE: US PELVIC COMPLETE INDICATIONS: RIGHT OVARIAN CYST TECHNIQUE: Real-time scanning was performed of the pelvic organs, with image documentation. Additional endovaginal scanning was necessary due to incomplete visualization of the adnexal and endometrial structures by transabdominal scanning. COMPARISON: [facility], CT, CT ABDOMEN PELVIS W CON, 01/20/2021, 10:42. FINDINGS: Uterus: Uterus is normal in size at 3.6 x 5.8 x 8.4 cm. The endometrium measures 6.4 mm in combined thickness. Centrally positioned IUD is low adjacent to the lower uterine segment.. Ovaries: The right ovary measures 2.2 x 3.3 x 4.6 cm and contains a complex structure that likely is a hemorrhagic ovarian cyst measuring up to 1.6 x 1.3 x 1.7 cm with internal echogenic content. This likely is involuting. It demonstrates vascular periphery. The left ovary measures 3.5 x 1.8 x 2.6 cm. Other: No pathologic free abdominal or pelvic fluid. IMPRESSION: Presumed involuting right ovarian hemorrhagic cyst. IUD in place, centrally positioned but low within the area adjacent to the lower uterine segment. Dictated by: Dallin Zelaya M.D. on 01/20/2021 at 12:38 MDM Narrative Medical decision making narrative: The patient overall appears will. No leukocytosis ovarian cyst found on the right. Recommend outpatient follow-up. She actually does not he did request anything for pain in the emergency department. Discharge Plan Departure Patient Disposition: Home Clinical Impression: Ovarian cyst Qualifiers: Laterality: right Qualified Code(s): N83.201 - Unspecified ovarian cyst, right side Instructions: DI for Ovarian Cyst Activity Restrictions/Additional Instructions: *You have been diagnosed with right ovarian cyst *What to do: At this time no sign of appendicitis. Please have repeat ultrasound in about 6-8 weeks for follow-up *Continue to take medications as directed Ibuprofen 800 mg every 8 hours if needed for [id number] pain Tylenol 1000 mg every 6 hours if needed for [id number] pain *Follow up with your primary care provider in 2-3 days *Return to ER if you should have increasing pain,, persistent vomiting, worsening diarrhea, dizziness, lightheaded or any new, worsening or concerning symptoms Prescriptions: No Action Mirena 20 mcg/24 hours (6 yrs) 52 mg intrauterine device intrauterine RF: 0 ondansetron 4 mg tablet,disintegrating 4 mg PO Q6-8H PRN (Reason: nausea and vomiting) Qty: 30 RF: 0 sertraline 50 mg tablet 50 mg PO DAILY Qty: 30 RF: 2 Referrals: Jacqueline Sadler DO [Primary Care Provider] -
[2021-01-20 10:06] LABS: Amorphous Sediment Urine 2+; Bacteria Urine Moderate (10-30); Mucus Urine 1+ (Negative); RBC Urine 5-10/HPF (0-5/HPF); Squamous Epithelial Cell Urine 10-30 /HPF (0-5/HPF); WBC Urine 5-10/HPF (0-5/HPF)
[2021-01-20 10:07] LABS: Culture Indicated Urine Cult Not Indicated
--- NOTE | 2021-01-20 10:11 | DI.CT.S_ITS ---
PROCEDURE: CT ABDOMEN PELVIS W CON INDICATIONS: right lower quad pain TECHNIQUE: After the administration of intravenous contrast, axial sections acquired from the lung bases to the pubic symphysis. Coronal and sagittal reformats were performed. For radiation dose reduction, the following was used: automated exposure control, adjustment of mA and/or kV according to patient size. COMPARISON: None. FINDINGS: Image quality: Excellent. Lung bases: Unremarkable. Heart: No significant findings. ABDOMEN: Liver: Unremarkable. Gallbladder: Unremarkable. Biliary ducts: Unremarkable. Pancreas: Unremarkable. Spleen: Unremarkable. Adrenal Glands: Unremarkable. Kidneys and Ureters: Unremarkable. Stomach and Bowel: Stomach, small bowel loops, and colon are unremarkable. Normal appendix. Peritoneum: No abnormal intraperitoneal fluid. No free air. Ventral Wall: No hernias. Abdominal Nodes: No retroperitoneal or mesenteric adenopathy by size criteria. Vessels: Aorta and inferior vena cava are normal in size. PELVIS: Pelvic Organs: The ovaries are normal size. There is a partially decompressed, peripherally hypervascular nodule measuring roughly 1.7 cm associated with the right ovary. There is an IUD within the uterus which is seated obliquely but remains within the endometrium. Bladder: The urinary bladder wall is moderately circumferentially thickened. No perivesicular inflammation or mucosal hyperemia. Pelvic Nodes: No enlarged lymph nodes. Miscellaneous: No hernias are seen. Bones: . Bilateral L5 pars defects. No anterolisthesis. IMPRESSION: 1. Probable involuting, possibly hemorrhagic right ovarian corpus luteum. 2. Slightly oblique orientation of the IUD but contained appropriately within the endometrium. 3. Normal appendix. Dictated by: Britany Lundberg M.D. on 01/20/2021 at 10:56 Approved by: Britany Lundberg M.D. on 01/20/2021 at 11:01
[2021-01-20] MEDS: ONDANSETRON 4 MG/2 ML INJ IV (10:16)
[2021-01-20] MEDS: SODIUM CHLORIDE 0.9% 1,000 ML 1000 ML IV (10:16)
[2021-01-20 10:24] VITALS: BP 130/62; PULSE 51; RESP 16; O2SAT 99
[2021-01-20 10:38] LABS: Add Manual Diff / Slide Review NO; Basophils Absolute Auto 100 /uL (0-100); Basophils Percent Auto 0.6 % (0-2); Eosinophils Absolute Auto 100 /uL (0-450); Eosinophils Percent Auto 0.9 % (2-4); Hematocrit 40.2 % (36-46); Hemoglobin 13.5 g/dL (12.0-16.0); Lymphocytes Absolute Auto 2000 /uL (1100-4500); Lymphocytes Percent Auto 20.4 % (25-40); Mean Corpuscular HGB Conc 33.5 % (30-36); Mean Corpuscular Hemoglobin 30.8 PG (26-34); Monocytes Absolute Auto 500 /uL (0-900); Monocytes Percent Auto 5.4 % (3-14); Neutrophils Absolute Auto 7200 /uL (1500-7000); Neutrophils Percent Auto 72.7 % (50-75); Platelet Count 224 X10^3/uL (150-400); Red Blood Cell Count 4.37 X10^6/uL (4.0-5.2); Red Cell Distribution Width 13.5 % (11.6-14.8); White Blood Cell Count 9.9 X10^3/uL (4.5-11.0)
[2021-01-20 10:46] LABS: Alanine Aminotransferase 22 IU/L (<35); Albumin 4.7 g/dL (3.5-5.0); Albumin Globulin Ratio 1.6 (1.0-2.8); Alkaline Phosphatase 85 U/L (38-126); Aspartate Aminotransferase 28 IU/L (14-36); BUN Creatinine Ratio 23.3 (6-22); Bilirubin Total 0.6 mg/dL (0.2-1.3); Blood Urea Nitrogen 17 mg/dL (7-17); Calcium 9.1 mg/dL (8.4-10.2); Carbon Dioxide 26 mmol/L (22-32); Chloride 105 mmol/L (98-107); Estimated Glomerular Filt Rate > 60.0 mL/min (>60); Globulin 2.9 g/dL (1.7-4.1); HEMOLYSIS < 15 (0-50); Lactate (Lactic Acid) 0.9 mmol/L (0.7-2.1); Lipase 48 U/L (23-300); Potassium 3.8 mmol/L (3.4-5.1); Sodium 139 mmol/L (137-145); Total Protein 7.6 g/dL (6.3-8.2)
[2021-01-20 11:02] LABS: Glucose 78 mg/dL (70-100)
[2021-01-20 11:04] LABS: COVID19 -Nasal RAPID Negative (Negative)
--- NOTE | 2021-01-20 11:11 | DI.US.S_ITS ---
PROCEDURE: US PELVIC COMPLETE INDICATIONS: RIGHT OVARIAN CYST TECHNIQUE: Real-time scanning was performed of the pelvic organs, with image documentation. Additional endovaginal scanning was necessary due to incomplete visualization of the adnexal and endometrial structures by transabdominal scanning. COMPARISON: [facility], CT, CT ABDOMEN PELVIS W CON, 01/20/2021, 10:42. FINDINGS: Uterus: Uterus is normal in size at 3.6 x 5.8 x 8.4 cm. The endometrium measures 6.4 mm in combined thickness. Centrally positioned IUD is low adjacent to the lower uterine segment.. Ovaries: The right ovary measures 2.2 x 3.3 x 4.6 cm and contains a complex structure that likely is a hemorrhagic ovarian cyst measuring up to 1.6 x 1.3 x 1.7 cm with internal echogenic content. This likely is involuting. It demonstrates vascular periphery. The left ovary measures 3.5 x 1.8 x 2.6 cm. Other: No pathologic free abdominal or pelvic fluid. IMPRESSION: Presumed involuting right ovarian hemorrhagic cyst. IUD in place, centrally positioned but low within the area adjacent to the lower uterine segment. Dictated by: Dallin Zelaya M.D. on 01/20/2021 at 12:38 Approved by: Dallin Zelaya M.D. on 01/20/2021 at 12:41
[2021-01-20 12:56] VITALS: BP 111/78; PULSE 53; RESP 16; O2SAT 98
== END 2021-01-20 12:57 | disposition home or self-care (01) ==
PROVIDERS: Emergency Provider Emergency Medicine; PCP Family Medicine
DX: N83.201 Unspecified ovarian cyst, right side (principal); Z20.822 Contact with and (suspected) exposure to COVID-19
CPT/HCPCS: 36415; 74177; 76830; 76856; 80053; 81003; 81015; 81025; 83605; 83690; 85025; 87635; 96361; 96374; 99284; C9803; J2405

== ENCOUNTER → 2021-04-28 11:54 | Outpatient (CLI) | payer OTHER, MEDICAID, SELFPAY ==
[2021-04-28 13:35] LABS: COVID19 -Nasal RAPID Negative (Negative)
== END ==
PROVIDERS: PCP Family Medicine; Referring Provider Nurse Practitioner; Visit Provider Nurse Practitioner
DX: Z20.822 Contact with and (suspected) exposure to COVID-19 (principal); R06.02 Shortness of breath; R09.81 Nasal congestion; R53.83 Other fatigue
CPT/HCPCS: 87635

== ENCOUNTER → 2022-10-12 09:27 | Outpatient (CLI) | payer OTHER, SELFPAY ==
[2022-10-12 10:12] LABS: Influenza A - CEPHEID Flu A NEGATIVE (NEGATIVE); Influenza B - CEPHEID Flu B NEGATIVE (NEGATIVE)
[2022-10-12 10:24] LABS: COVID-19 CEPHEID 4-PLEX PCR POSITIVE (Negative)
== END ==
PROVIDERS: PCP Family Medicine; Visit Provider Family Medicine
DX: U07.1 COVID-19 (principal); R09.89 Other specified symptoms and signs involving the circulatory and respiratory systems; R52 Pain, unspecified; R68.83 Chills (without fever); Z20.822 Contact with and (suspected) exposure to COVID-19
CPT/HCPCS: 0240U

== ENCOUNTER 2022-11-25 11:38 | Emergency (ER) | payer OTHER, SELFPAY ==
[2022-11-25 11:44] VITALS: BP 137/75; PULSE 87; RESP 20; TEMP 36.3; O2SAT 97; BMI 26.6
--- NOTE | 2022-11-25 11:56 | ED.WOUNDLAC ---
HPI - Wound/Laceration General Chief Complaint: Wound/Laceration Stated Complaint: lt hand pointer finger cut open by scissors, bleed Time Seen by Provider: 11/25/22 11:49 Source: patient Mode of arrival: Ambulatory History of Present Illness HPI narrative: Patient is a 27-year-old female here for evaluation of a cut to the tip of her left index finger. She cut it on a pair of scissors prior to arrival. Related Data Previous Rx's Medication Instructions Recorded levonorgestrel 0.15 mg-ethinyl 1 tab PO DAILY #273 ea 09/10/22 estradiol 30 mcg tablets,3 mos pack(91) sertraline 100 mg tablet See Rx Instructions .Route 11/06/22 .COMPLEX #30 tabs Allergies Allergy/AdvReac Type Severity Reaction Status Date / Time No Known Drug Allergies Allergy Verified 11/25/22 11:49 Review of Systems Integumentary/Breasts Skin/Breast: Reports system reviewed and no additional complaints, except as documented Neurologic Neurologic: Reports system reviewed and no additional complaints, except as documented Hematologic/Lymphatic Hematologic/Lymphatic: Reports system reviewed and no additional complaints, except as documented Patient History Medical History Anemia Anxiety disorder Major depression Spontaneous vaginal delivery Surgical History H/O dilation and curettage Hx of tonsillectomy (~2017) [place] teeth removed (~2014) Family History Father Hyperlipidemia Hypertension Grandfather Bladder cancer Diabetes mellitus Hyperlipidemia Hypertension Grandmother Hypothyroidism Grandmother No known health problems Grandfather Hyperlipidemia Hypertension Heavy smoker Depression Family/Other Depression Social History marital status: unmarried,single number of children: 1 household members: children lives independently: Yes pets and animals: Yes (X 2 dogs ) education level: high school occupational status: employed current occupational exposures/hazards: No special tanvi needs: No Smoking Status: Former smoker second hand exposure: Yes alcohol intake: former substance use type: does not use Smoking Status: Former smoker alcohol intake frequency: a few times a month Substance Use Type: does not use Exam Initial Vital Signs Initial Vital Signs: Vital Signs Temperature 97.4 F L 11/25/22 11:44 Pulse Rate 87 11/25/22 11:44 Respiratory Rate 20 11/25/22 11:44 Blood Pressure 137/75 11/25/22 11:44 Pulse Oximetry 97 11/25/22 11:44 Oxygen Delivery Method Room Air 11/25/22 11:44 Skin Other: 1 cm cut to the dorsal aspect of the left index finger over the pad. It does not involve the nail. Neuro Sensory Exam: no sensory deficits noted Procedures Laceration Repair Laceration 1: Site: other (Finger) Size (cm): 1 Description: linear Depth: simple, single layer Skin layer closed with: dermabond Course Vital Signs Vital signs: Vital Signs - 8 hr 11/25/22 11:44 Temperature 97.4 F L Pulse Rate 87 Respiratory Rate 20 Blood Pressure 137/75 Pulse Oximetry 97 Oxygen Delivery Method Room Air MDM - Wound/Laceration MDM Narrative Medical decision making narrative: Superficial laceration to the left index finger. Was closed with Steri-Strips and Dermabond. No imaging studies needed. Patient was given care instructions and return precautions. She expressed understanding and agreement. Discharge Plan Departure Patient Disposition: Home Clinical Impression: Laceration Instructions: DI for Laceration Repair-Skin Glue Activity Restrictions/Additional Instructions: You can wash your hands like normal but do not soak your ended anything until the wound has healed. Return to the emergency department for new or worsening symptoms. Prescriptions: No Action levonorgestrel-ethinyl estrad 0.15 mg-30 mcg (91) tablets,dose pack,3 month 1 tab PO DAILY Qty: 273 0RF sertraline 100 mg tablet See Rx Instructions .ROUTE .COMPLEX Qty: 30 4RF Dose Instruction: take 1 tablet by mouth once daily Rx Instructions: take 1 tablet by mouth once daily Referrals: Jacqueline Sadler DO [Primary Care Provider] - Stand Alone Forms: Patient Portal/API
== END 2022-11-25 12:02 | disposition home or self-care (01) ==
PROVIDERS: Emergency Provider Emergency Medicine; PCP Family Medicine
DX: S61.211A Laceration without foreign body of left index finger without damage to nail, initial encounter (principal); W26.8XXA Contact with other sharp object(s), not elsewhere classified, initial encounter
CPT/HCPCS: 99281; 99282

== ENCOUNTER → 2024-05-12 09:11 | Outpatient (CLI) | payer OTHER, SELFPAY ==
[2024-05-12 14:49] LABS: Urine N gonorrhoeae NOT DETECTED
[2024-05-12 14:52] LABS: Urine Chlamydia NOT DETECTED
== END ==
PROVIDERS: PCP Physician Assistant; Visit Provider Student in an Organized Health Care Education/Training Program
DX: Z34.80 Encounter for supervision of other normal pregnancy, unspecified trimester (principal)
CPT/HCPCS: 87491; 87591

== ENCOUNTER → 2024-05-12 09:38 | Outpatient (CLI) | payer OTHER, SELFPAY ==
[2024-05-12 11:00] LABS: Add Manual Diff / Slide Review NO; Basophils Absolute Auto 100 /uL (0-100); Basophils Percent Auto 0.5 % (0-2); Eosinophils Absolute Auto 100 /uL (0-450); Eosinophils Percent Auto 0.5 % (2-4); Hematocrit 37.2 % (36-46); Hemoglobin 12.7 g/dL (12.0-16.0); Lymphocytes Absolute Auto 2900 /uL (1100-4500); Lymphocytes Percent Auto 22.9 % (25-40); Mean Corpuscular HGB Conc 34.1 % (30-36); Mean Corpuscular Hemoglobin 31.1 PG (26-34); Mean Corpuscular Volume 91.3 fL (80-100); Monocytes Absolute Auto 200 /uL (0-900); Monocytes Percent Auto 1.9 % (3-14); Neutrophils Absolute Auto 9500 /uL (1500-7000); Neutrophils Percent Auto 74.2 % (50-75); Platelet Count 248 X10^3/uL (150-400); Red Blood Cell Count 4.07 X10^6/uL (4.0-5.2); White Blood Cell Count 12.8 X10^3/uL (4.5-11.0)
[2024-05-12 11:47] LABS: Hepatitis B Surface Antigen NEGATIVE s/c (NEGATIVE); Rubella Antibody IgG 26.8 IU/mL (>15)
[2024-05-12 12:05] LABS: HIV 1 & 2 Ab/Ag 4th Gen Combo NEGATIVE (NEGATIVE); Hep C Virus Ab w/Reflex Quant NEGATIVE s/c (NEGATIVE)
[2024-05-13 04:14] LABS: RPR Screen Non Reactive (Non Reactive)
[2024-05-13 09:09] LABS: Varicella IgG Antibody Reactive (Non Reactive)
== END ==
LOC: LAB 09:39
PROVIDERS: PCP Physician Assistant; Referring Provider Student in an Organized Health Care Education/Training Program; Visit Provider Student in an Organized Health Care Education/Training Program
DX: Z34.80 Encounter for supervision of other normal pregnancy, unspecified trimester (principal)
CPT/HCPCS: 36415; 80055; 86787; 86803; 86850; 86900; 86901; 87086; 87389; 87491; 87591

== ENCOUNTER 2024-06-19 08:40 | Emergency (ER) | payer OTHER, SELFPAY ==
[2024-06-19 08:57] VITALS: BP 154/71; PULSE 86; RESP 16; TEMP 36.5; O2SAT 99; BMI 30.5
--- NOTE | 2024-06-19 09:01 | DI.US.S_ITS ---
PROCEDURE: US OB LIMITED INDICATIONS: BLEEDING OUTSIDE/PRIOR DATING DATA: The calculations are made using the working CORDELL of 12/14/2024. TECHNIQUE: Real-time scanning was performed of the fetus, with image documentation. Endovaginal scanning: Not performed COMPARISON: None. FINDINGS: A single living intrauterine gestation is present. Presentation: Variable. Placenta: Placental position is anterior, without previa. Amniotic fluid index: Subjectively normal. heart rate: 144 beats per minute. Maternal cervical canal: 4.5 cm long. Normal lower limit is 2.5 cm. Clinically estimated gestational age: 14 weeks 4 days Small subchorionic hemorrhage versus placental Multani measuring 4.4 x 0.9 x 1.9 cm. IMPRESSION: Single living intrauterine at 14 weeks 4 days, CORDELL of 12/14/2024. Small subchorionic hemorrhage versus placental [place] measuring 4.4 x 0.9 x 1.9 cm. The cervix is long and closed, measuring 4.5 cm. Dictated by: Cam Castillo M.D. on 06/19/2024 at 9:54 Approved by: Cam Castillo M.D. on 06/19/2024 at 9:56
--- NOTE | 2024-06-19 09:28 | ED.PREGNANCY ---
HPI - General Chief complaint: Vaginal Bleeding Stated complaint: 14 Weeks lightly bleeding Time Seen by Provider: 06/19/24 09:25 Source: patient, RN notes reviewed and old records reviewed Mode of arrival: Ambulatory Limitations: no limitations History of Present Illness HPI Narrative: 29-year-old female A1 presents with of vaginal bleeding. Patient noticed a little bit last night into today mostly with wiping when she urinates but a small amount on liner today. Patient has noticed a little bit of mild cramping. She was also and a little bit of right hip pain especially with ambulation. No trauma no injuries. She denies fevers, no chills. She has had nausea throughout her , no vomiting recently. No chest pain or shortness of breath. States mild cramping, no dysuria urgency or frequency. No issues with bowel movements. Patient states she is fluoxetine daily, was prescribed nicotine patches she smokes a cigarette once weekly currently, no recreational drugs or alcohol. Denies any major surgeries. 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 Related Data Home Medications Medication Instructions Recorded Confirmed CVH80-MR 400 mcg-om3 35 mg-dha 25 tab PO 05/04/24 06/08/24 mg-epa 5 mg-fish oil chewable tablet fluoxetine 20 mg capsule 20 mg PO DAILY 05/04/24 06/08/24 Previous Rx's Medication Instructions Recorded nicotine 7 mg/24 hr daily 1 patch transdermal Q24H 3 weeks 06/16/24 transdermal patch #21 ea Allergies Allergy/AdvReac Type Severity Reaction Status Date / Time No Known Drug Allergies Allergy Verified 06/08/24 08:28 Review of Systems Review of Systems ROS Unobtainable: All systems reviewed & are unremarkable except as noted in HPI and below Exam Narrative Exam Narrative: GENERAL: Alert and oriented x three, well-appearing female in mild distress HEENT: Head normocephalic, atraumatic, EOMI, pupils reactive, face symmetric, moist mucous membranes NECK: Supple, full range of motion CARDIOVASCULAR: Regular rate and rhythm without murmurs, rubs or gallops. RESPIRATORY: Breath sounds equal bilaterally, no wheezes rales or rhonchi. ABDOMEN: Soft, nontender. Normoactive bowel sounds all 4 quadrants. No guarding or rebound, rigidity, no mass : No CVA tenderness EXTREMITIES: Normal range of motion, no clubbing or edema. Neurovascularly intact. Nontender in the right hip or leg. NEUROLOGICAL: Cranial nerves II through XII grossly intact. Moving all extremities SKIN: Warm, dry, no petechiae, no rashes or lesions. Initial Vital Signs Initial Vital Signs: Vital Signs Temperature 97.7 F 06/19/24 08:57 Pulse Rate 86 06/19/24 08:57 Respiratory Rate 16 06/19/24 08:57 Blood Pressure 154/71 H 06/19/24 08:57 Pulse Oximetry 99 06/19/24 08:57 Oxygen Delivery Method Room Air 06/19/24 08:57 Course Orders Ordered: ED Orders 06/19/24 09:01 US OB limited Stat 06/19/24 09:20 Complete Blood Count AUTO DIFF Stat Comprehensive Metabolic Panel Stat HCG Quantitative /Beta subunit Stat Type and Screen Stat Vital Signs Vital signs: Vital Signs - 8 hr 06/19/24 08:57 06/19/24 09:36 06/19/24 09:36 Temperature 97.7 F Pulse Rate 86 Respiratory Rate 16 Blood Pressure 154/71 H 156/69 H 153/69 H Pulse Oximetry 99 Oxygen Delivery Method Room Air 06/19/24 10:00 06/19/24 10:30 06/19/24 11:00 Temperature Pulse Rate Respiratory Rate Blood Pressure 143/75 H 134/64 124/62 Pulse Oximetry Oxygen Delivery Method MDM - OB/Uterine Contractions Lab Data 06/19/24 09:20 06/19/24 09:20 Labs: Lab Results 06/19/24 Range/Units 09:20 WBC 10.1 (4.5-11.0) X10^3/uL RBC 3.60 L (4.0-5.2) X10^6/uL Hgb 11.3 L (12.0-16.0) g/dL Hct 33.4 L (36-46) % MCV 92.8 (80-100) fL MCH 31.5 (26-34) PG MCHC 34.0 (30-36) % RDW 14.6 (11.6-14.8) % Plt Count 214 (150-400) X10^3/uL Neut % (Auto) 73.8 (50-75) % Lymph % (Auto) 20.8 L (25-40) % [place] % (Auto) 4.2 (3-14) % Eos % (Auto) 0.9 L (2-4) % Baso % (Auto) 0.3 (0-2) % Neut # (Auto) 7400 H (7485-8020) /uL Lymph # (Auto) 2100 (0544-2108) /uL [place] # (Auto) 400 (0-900) /uL Eos # (Auto) 100 (0-450) /uL Baso # (Auto) 0 (0-100) /uL Sodium 137 (137-145) mmol/L Potassium 3.6 (3.4-5.1) mmol/L Chloride 106 (98-107) mmol/L Carbon Dioxide 26 (22-32) mmol/L BUN 8 (7-17) mg/dL Creatinine 0.68 (0.52-1.04) mg/dL Estimated GFR > 60 (>60) mL/min BUN/Creatinine Ratio 11.8 (6-22) Glucose 78 (70-100) mg/dL Calcium 9.4 (8.4-10.2) mg/dL Total Bilirubin 0.3 (0.2-1.3) mg/dL AST 31 (14-36) IU/L ALT 36 H (<35) IU/L Alkaline Phosphatase 59 (38-126) U/L Total Protein 6.3 (6.3-8.2) g/dL Albumin 3.8 (3.5-5.0) g/dL Globulin 2.5 (1.7-4.1) g/dL Albumin/Globulin Ratio 1.5 (1.0-2.8) HCG, Quant 23810 mIU/mL Blood Type A Positive Antibody Screen Negative Urine Dip Bedside Urine Glucose Negative Bedside Urine Bilirubin - Negative Bedside Urine Ketone - Negative Urine Specific [place] 1.010 Bedside Urine Occult Blood +++ Bedside Urine pH 7.0 Bedside Urine Protein - Negative Bedside Urine Urobilinogen - Negative Bedside Urine Nitrite - Negative Bedside Urine Leukocytes - Negative Esterase Imaging Data US - OB: Radiologist's Impression: Crys Dahl?(VIP)??29??F??1995 ? Allergy/Adv: No Known Drug Allergies (More??) Close Obstetrics Ultrasound (Signed) Cam Castillo - 06/19/24 Pelvis Ultrasound (Signed) Dallin Zelaya - 01/20/21 Abdomen/Pelvis CT (Signed) Britany Lundberg - 01/20/21 Ultrasound (Signed) Dallin Zelaya - 10/27/19 Ultrasound (Signed) Geo Staton - 08/24/19 Launch?[address] [address] Ultrasound Report Signed Patient: Crys Dahl MR#: [id number] : 1995 Acct:[id number] Age/Sex: 29 / F Date of Service: 06/19/24 Loc: ED Accession Number: [id number] Procedure: US OB limited Ordering Provider: Celestina Kenny D.O. PROCEDURE: US OB LIMITED INDICATIONS: BLEEDING OUTSIDE/PRIOR DATING DATA: The calculations are made using the working CORDELL of 12/14/2024. TECHNIQUE: Real-time scanning was performed of the fetus, with image documentation. Endovaginal scanning: Not performed COMPARISON: None. FINDINGS: A single living intrauterine gestation is present. Presentation: Variable. Placenta: Placental position is anterior, without previa. Amniotic fluid index: Subjectively normal. heart rate: 144 beats per minute. Maternal cervical canal: 4.5 cm long. Normal lower limit is 2.5 cm. Clinically estimated gestational age: 14 weeks 4 days Small subchorionic hemorrhage versus placental Multani measuring 4.4 x 0.9 x 1.9 cm. IMPRESSION: Single living intrauterine at 14 weeks 4 days, CORDELL of 12/14/2024. Small subchorionic hemorrhage versus placental Multani measuring 4.4 x 0.9 x 1.9 cm. The cervix is long and closed, measuring 4.5 cm. Dictated by: Cam Csatillo M.D. on 06/19/2024 at 9:54 Approved by: Cam Castillo M.D. on 06/19/2024 at 9:56 MDM Narrative Medical decision making narrative: 29-year-old female A2 with vaginal spotting approximately 14 weeks by dates. Patient has a establish care with Dr. Suh acoustical material worker. Labs white count of 10 hemoglobin 11.3 has been 11-12 in the past platelets 214. Electrolytes are appropriate BUN 8 creatinine 0.68 LFTs show an AST of 36 otherwise appropriate. Quant HCG 39,278. Type and screen is A positive. Ultrasound, Ob limited single living intrauterine gestation central position anterior without previa, CORDELL of 12/14/2024. 144 beats per minute for heart rate 14 weeks and 4 days small subchorionic hemorrhage versus placenta leak measuring 4.4 x 0.9 x 1.9 cm cervix is long and closed measuring 4.5 cm. Point of care urine shows blood no nitrates or leuks. Discussed findings with the patient, pelvic rest, follow up with OBGYN, discussed return precautions all questions answered. Discharge Plan Departure Patient Disposition: Home Clinical Impression: Vaginal bleeding in Instructions: DI for Vaginal Bleeding During Activity Restrictions/Additional Instructions: Follow up with Dr. Suh. Your imaging today shows a small subchorionic hemorrhage versus placental Multani measuring 4.5 x 0.9 x 1.9 cm. You can continue to use pads but do not use any tampons. Recommend pelvic rest no lifting heavy weights, no sexual activity until cleared by your team. Please return for fevers, rapidly worsening abdominal, back or flank pain, increasing bleeding, going through more than a pad an hour, lightheadedness or passing, chest pain or shortness of breath or other new or concerning changes. Prescriptions: No Action nicotine 7 mg/24 hr patch 24 hour 1 patch transdermal Q24H 21 Days Qty: 21 0RF [id number] oil 400 mcg-35 mg -25 mg-5 mg tablet,chewable PO fluoxetine 20 mg capsule 20 mg PO DAILY Referrals: Yumiko Mireles MD [Primary Care Provider] - Martina Suh DO [Physician] - Stand Alone Forms: Patient Portal/API/Survey
[2024-06-19 09:31] LABS: Add Manual Diff / Slide Review NO; Basophils Absolute Auto 0 /uL (0-100); Basophils Percent Auto 0.3 % (0-2); Eosinophils Absolute Auto 100 /uL (0-450); Eosinophils Percent Auto 0.9 % (2-4); Hematocrit 33.4 % (36-46); Hemoglobin 11.3 g/dL (12.0-16.0); Lymphocytes Absolute Auto 2100 /uL (1100-4500); Lymphocytes Percent Auto 20.8 % (25-40); Mean Corpuscular Hemoglobin 31.5 PG (26-34); Mean Corpuscular Volume 92.8 fL (80-100); Monocytes Absolute Auto 400 /uL (0-900); Monocytes Percent Auto 4.2 % (3-14); Neutrophils Absolute Auto 7400 /uL (1500-7000); Neutrophils Percent Auto 73.8 % (50-75); Platelet Count 214 X10^3/uL (150-400); Red Cell Distribution Width 14.6 % (11.6-14.8); White Blood Cell Count 10.1 X10^3/uL (4.5-11.0)
[2024-06-19 09:36] VITALS: BP 153/69; BP 156/69
[2024-06-19 09:56] LABS: Alanine Aminotransferase 36 IU/L (<35); Albumin 3.8 g/dL (3.5-5.0); Albumin Globulin Ratio 1.5 (1.0-2.8); Alkaline Phosphatase 59 U/L (38-126); Aspartate Aminotransferase 31 IU/L (14-36); BUN Creatinine Ratio 11.8 (6-22); Bilirubin Total 0.3 mg/dL (0.2-1.3); Blood Urea Nitrogen 8 mg/dL (7-17); Calcium 9.4 mg/dL (8.4-10.2); Carbon Dioxide 26 mmol/L (22-32); Chloride 106 mmol/L (98-107); Estimated Glomerular Filt Rate > 60 mL/min (>60); Globulin 2.5 g/dL (1.7-4.1); Glucose 78 mg/dL (70-100); HEMOLYSIS < 15 (0-50); Potassium 3.6 mmol/L (3.4-5.1); Sodium 137 mmol/L (137-145); Total Protein 6.3 g/dL (6.3-8.2)
[2024-06-19 10:00] VITALS: BP 143/75
[2024-06-19 10:30] VITALS: BP 134/64
[2024-06-19 10:38] LABS: HCG Quantitative /Beta subunit 39278 mIU/mL
[2024-06-19 11:00] VITALS: BP 124/62
== END 2024-06-19 11:23 | disposition home or self-care (01) ==
PROVIDERS: Emergency Provider Emergency Medicine; PCP Student in an Organized Health Care Education/Training Program
DX: O46.92 Antepartum hemorrhage, unspecified, second trimester (principal); Z3A.14 14 weeks gestation of pregnancy
CPT/HCPCS: 36415; 76815; 80053; 81003; 84702; 85025; 86850; 86900; 86901; 99282; 99284

== ENCOUNTER → 2024-06-23 13:50 | Outpatient (CLI) | payer OTHER, SELFPAY ==
[2024-06-23 14:54] LABS: Natera Collection Specimen Collected
== END ==
PROVIDERS: PCP Student in an Organized Health Care Education/Training Program; Referring Provider Student in an Organized Health Care Education/Training Program; Visit Provider Student in an Organized Health Care Education/Training Program
DX: Z34.82 Encounter for supervision of other normal pregnancy, second trimester (principal); Z36.0 Encounter for antenatal screening for chromosomal anomalies
CPT/HCPCS: 36415; 82105; 82677; 84702; 86336

== ENCOUNTER → 2024-08-03 11:10 | Outpatient (CLI) | payer OTHER, SELFPAY ==
--- NOTE | 2024-08-03 11:11 | DI.US.S_ITS ---
PROCEDURE: US OB >= 14 WEEKS FETUS INDICATIONS: 20 weeks anatomy scan OUTSIDE/PRIOR DATING DATA: The calculations are made using the working CORDELL of 12/14/2024. TECHNIQUE: Real-time scanning was performed of the fetus, with image documentation and biometric measurements. Endovaginal scanning: Not performed COMPARISON: [facility], OB >= 14 WEEKS FETUS, 10/27/2019, 11:46. FINDINGS: General: A single living intrauterine gestation is present. Presentation: Vertex. Placenta: Placental position is anterior , without previa. Amniotic fluid index: 10.9 cm, normal range is 5-24 cm. Single deepest vertical pocket is 5.3 cm. heart rate: 145 beats per minute. Maternal cervical canal: 5.5 cm long. Normal lower limit is 2.5 cm. biometrics: Biparietal diameter: 4.8 centimeter, 20 weeks 4 days Head circumference: 18 centimeters, 20 weeks 3 days Abdominal circumference: 17.2 centimeters, 22 weeks 1 day Femur length: 3.4 centimeter, 20 weeks 5 days Clinically estimated gestational age: 21 weeks 0 days Composite gestational age from present scan: 21 weeks 0 days Estimated weight and percentile: 418 grams, 65th percentile Anatomic survey: Neuro: Ventricles are non-dilated at less than 10 mm. Cisterna magna is normal at 3-11 mm. Cerebellum is normal in size and morphology. Nuchal skin fold: Normal at less than 6 mm between 14-21 weeks gestational age. Face: Nose and lips, facial profile are normal. Spine: No evidence for spina bifida. Heart: 4-chambered heart is present, with normal ventricular outflow tracts. Diaphragm: Diaphragm is intact. Stomach: Left-sided stomach is present. Kidneys: No hydronephrosis. Normal is less than 5 mm in 2nd trimester, less than 7 mm in 3rd trimester. Cord: 3-vessel cord has orthotopic insertion. Bladder: Normal in size. Extremities: All 4 extremities identified. IMPRESSION: Single living intrauterine at 21 weeks 0 days, CORDELL of 12/14/2024. Estimated weight of 418 grams, 65 percentile. Normal anatomy survey. We strive to produce accurate, complete, and clear reports of imaging services. To assist us in improving patient care, this report was composed using standard report templates and voice recognition software. Therefore, it may contain abnormal punctuation, insertions and/or omissions. Occasional wrong-word or sound-alike substitutions may occur. Though we review the report and make efforts to correct it, we do recommend that the report be read carefully in proper context to recognize any text inaccuracies. Dictated by: Cam Castillo M.D. on 08/03/2024 at 16:05 Approved by: Cam Castillo M.D. on 08/03/2024 at 16:07
== END ==
LOC: US 11:11
PROVIDERS: PCP Student in an Organized Health Care Education/Training Program; Referring Provider Student in an Organized Health Care Education/Training Program; Visit Provider Student in an Organized Health Care Education/Training Program
DX: Z34.82 Encounter for supervision of other normal pregnancy, second trimester (principal); Z3A.21 21 weeks gestation of pregnancy
CPT/HCPCS: 76811

== ENCOUNTER → 2024-09-05 10:13 | Outpatient (CLI) | payer OTHER, SELFPAY ==
[2024-09-05 12:20] LABS: Hematocrit 29.8 % (36-46); Hemoglobin 10.2 g/dL (12.0-16.0)
[2024-09-05 13:11] LABS: GTT (PREG) 1 Hour PP 50gm Dose 131 mg/dL (76-139)
== END ==
LOC: LAB 10:15
PROVIDERS: PCP Student in an Organized Health Care Education/Training Program; Referring Provider Student in an Organized Health Care Education/Training Program; Visit Provider Student in an Organized Health Care Education/Training Program
DX: Z13.1 Encounter for screening for diabetes mellitus (principal); Z13.0 Encounter for screening for diseases of the blood and blood-forming organs and certain disorders involving the immune mechanism
CPT/HCPCS: 36415; 82950; 85014; 85018

== ENCOUNTER → 2024-11-17 10:49 | Outpatient (CLI) | payer OTHER, SELFPAY ==
[2024-11-18 12:22] LABS: Strep Grp B PCR NEG for Grp B Strep
== END ==
LOC: LAB 10:53
PROVIDERS: PCP Student in an Organized Health Care Education/Training Program; Visit Provider Obstetrics & Gynecology
DX: Z3A.37 37 weeks gestation of pregnancy (principal); Z34.93 Encounter for supervision of normal pregnancy, unspecified, third trimester
CPT/HCPCS: 87653

== ENCOUNTER → 2024-11-23 10:13 | Outpatient (CLI) | payer OTHER, SELFPAY ==
[2024-11-23 11:12] LABS: Hematocrit 29.3 % (36-46); Hemoglobin 10.3 g/dL (12.0-16.0)
== END ==
PROVIDERS: PCP Student in an Organized Health Care Education/Training Program; Referring Provider Student in an Organized Health Care Education/Training Program; Visit Provider Student in an Organized Health Care Education/Training Program
DX: O99.019 Anemia complicating pregnancy, unspecified trimester (principal)
CPT/HCPCS: 36415; 85014; 85018

== ENCOUNTER → 2024-12-04 09:58 | Outpatient (CLI) | payer OTHER, SELFPAY | LOC: LAB 09:59 | PROVIDERS: PCP Student in an Organized Health Care Education/Training Program; Visit Provider Student in an Organized Health Care Education/Training Program | DX: N89.8 Other specified noninflammatory disorders of vagina (principal) | CPT/HCPCS: 87210 ==

== ENCOUNTER 2024-12-14 18:15 | Outpatient (CLI) | payer OTHER, SELFPAY ==
[2024-12-14 18:44] LABS: Appearance Urine UA CLEAR; Bilirubin Urine UA NEGATIVE (NEGATIVE); Color Urine UA YELLOW; Glucose Urine UA NEGATIVE (Negative); Ketones Urine UA NEGATIVE (NEGATIVE); Leukocyte Esterase Urine UA 1+ (NEGATIVE); Nitrite Urine UA NEGATIVE (Negative); Occult Blood Urine UA NEGATIVE (Negative); Protein Urine UA NEGATIVE (Negative); Specific Gravity Urine UA <=1.005 (1.000-1.035); Urobilinogen Urine UA 0.2 E.U./dL (0.2)
[2024-12-14 18:50] LABS: Bacteria Urine Few (2-10); Culture Indicated Urine Specimen Cultured; RBC Urine 0-1/HPF (0-5/HPF); Squamous Epithelial Cell Urine 1-5 /HPF (0-5/HPF); Urine Volume 10mL (spun); WBC Urine 1-5/HPF (0-5/HPF)
--- NOTE | 2024-12-14 19:51 | P.TNLD_ITS ---
Visit Information Visit Information Date of evaluation: 12/14/24 Primary OB Provider: Martina Suh On-call OB Provider: Yumiko Mireles Reason for Evaluation: Yes other Comments/Additional reasons for admission: Patient is a 29 yo at 40 weeks coming in for sharp suprapubic pain, 4 episodes of diarrhea and sander-martins contractions. [facility] Medical History (Updated 12/14/24 @ 19:54 by Yumiko Mireles MD) Spontaneous vaginal delivery Anemia Surgical History (Updated 05/04/24 @ 15:40 by Lucia August, RN) H/O dilation and curettage Hx of tonsillectomy (~2016) [place] teeth removed (~2014) Family History (Updated 05/04/24 @ 15:46 by Lucia August, [place]) Father Hyperlipidemia Hypertension Grandfather Bladder cancer Diabetes mellitus Hyperlipidemia Hypertension Grandmother Hypothyroidism Grandmother Alcoholism Grandfather Hyperlipidemia Hypertension Heavy smoker Depression Alcoholism Aunt Depression Aunt Lymphoma Social History marital status: unmarried,living together number of children: 1 (also s/o's son ~50% of the time) household members: children lives independently: Yes caregiver/support person: Yes housing: apartment pets and animals: Yes (X 2 dogs ) education level: high school 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[employer]) current occupational exposures/hazards: No special tanvi needs: No travel history: over 6 months ago seatbelt use: always water heater temp set < 120 deg: Yes working smoke detector in home: Yes fire extinguisher in home: Yes carbon monox detector in home: Yes firearms in home: No do you feel safe at home: Yes Tobacco: How many years used: 7 quit status: considering quitting (actively trying, down to 1-2 cigarettes/day) second hand exposure: Yes alcohol intake: former substance use type: marijuana during the past year weight has: other (lost w/ semaglutide, gained it back when stopped) well-balanced diet: about half the time daily servings fruits/ve-4 caffeine: Yes (aware of 200mg limit, discussed ) Type(s) of exercise: walking frequency: 1-2 times per week Review of Systems Review of Systems ROS: Yes All systems reviewed with the patient and are negative except as otherwise documented Objective Labs Labs: Laboratory Results - last 24 hr 12/14/24 18:28 Urine Color Yellow Urine Appearance Clear Urine pH 6.0 Ur Specific [place] <=1.005 Urine Protein Negative Urine Glucose (UA) Negative Urine Ketones Negative Urine Occult Blood Negative Urine Nitrate Negative Urine Bilirubin Negative Urine Urobilinogen 0.2 Ur Leukocyte Esterase 1+ H Urine RBC 0-1/hpf Urine WBC 1-5/hpf Ur Squamous Epith Cells 1-5 /hpf D Urine Bacteria Few (2-10) H Ur Culture Indicated? Specimen cultured Vol Urine Centrifuged 10ml (spun) Evaluation Evaluation Baseline heart rate: 145 Variability: Average (6-10) monitor accelerations: Present Monitor Decelerations: Absent Uterine Contraction Intensity: Mild Category of Tracing: Reactive Status: Category l Cervical dilation (cm): 1 Diagnosis, Plan/Disposition Plan/Disposition Plan: 29 yo at 40 wks here with suprapubic pain. UA with leuks and bacteria - will treat with keflex until urine culture results. No contractions on monitor, SVE 1/high.Labor precautions given. FU with primary OB tomorrow. OB Disposition: home
[2024-12-14] MEDS: cephALEXin 250 MG CAPSULE 500 MG PO (20:06)
== END 2024-12-14 20:10 | disposition home or self-care (01) ==
LOC: OB 12-15 17:19
PROVIDERS: PCP Student in an Organized Health Care Education/Training Program; Referring Provider Student in an Organized Health Care Education/Training Program; Visit Provider Student in an Organized Health Care Education/Training Program
DX: O26.893 Other specified pregnancy related conditions, third trimester (principal); R10.2 Pelvic and perineal pain; R19.7 Diarrhea, unspecified; O47.1 False labor at or after 37 completed weeks of gestation; Z3A.40 40 weeks gestation of pregnancy
CPT/HCPCS: 59025; 81001; 87086; G0378; G0379

== ENCOUNTER 2024-12-16 07:30 | Inpatient (IN) | payer OTHER, SELFPAY ==
[2024-12-16] MEDS: OXYTOCIN PREMIX 30 UNIT/500 ML PLAST..BAG IV (08:46)
[2024-12-16] MEDS: LACTATED RINGERS 1,000 ML 100 ML IV ×2 (08:46→15:41)
[2024-12-16 08:52] LABS: Add Manual Diff / Slide Review NO; Basophils Absolute Auto 100 /uL (0-100); Basophils Percent Auto 0.6 % (0-2); Eosinophils Absolute Auto 100 /uL (0-450); Eosinophils Percent Auto 0.9 % (2-4); Hematocrit 31.2 % (36-46); Hemoglobin 10.7 g/dL (12.0-16.0); Lymphocytes Absolute Auto 1700 /uL (1100-4500); Lymphocytes Percent Auto 15.4 % (25-40); Mean Corpuscular HGB Conc 34.3 % (30-36); Mean Corpuscular Hemoglobin 32.3 PG (26-34); Mean Corpuscular Volume 94.2 fL (80-100); Monocytes Absolute Auto 600 /uL (0-900); Monocytes Percent Auto 5.2 % (3-14); Neutrophils Absolute Auto 8400 /uL (1500-7000); Neutrophils Percent Auto 77.9 % (50-75); Platelet Count 202 X10^3/uL (150-400); Red Blood Cell Count 3.31 X10^6/uL (4.0-5.2); Red Cell Distribution Width 14.9 % (11.6-14.8); White Blood Cell Count 10.8 X10^3/uL (4.5-11.0)
--- NOTE | 2024-12-16 09:01 | P.DS_ITS ---
Discharge Providers Provider Date of admission: 12/16/24 07:30 Primary care physician: Yumiko Mireles MD Consults: 12/16/24 08:12 Consult to Anesthesiology Urgent Comment: Consulting Provider: Anesthesiologist Reason for consultation: Epidural Discharge provider: Marly Huitron MD Summary Time Spent with Patient Time attestation: Total time spent providing and/or coordinating discharge services: Objective Labs 12/16/24 08:25 Labs: Laboratory Results - last 24 hr 12/16/24 08:25 WBC 10.8 RBC 3.31 L Hgb 10.7 L Hct 31.2 L MCV 94.2 MCH 32.3 MCHC 34.3 RDW 14.9 H Plt Count 202 Neut % (Auto) 77.9 H Lymph % (Auto) 15.4 L [place] % (Auto) 5.2 Eos % (Auto) 0.9 L Baso % (Auto) 0.6 Neut # (Auto) 8400 H Lymph # (Auto) 1700 [place] # (Auto) 600 Eos # (Auto) 100 Baso # (Auto) 100 Discharge Plan Discharge Plan Patient Disposition: Home Provider Discharge Comment: no heavy lifting >10lbs (baby + carrier) for 6 weeks. Daily lovenox injections for 2 weeks. Discharge orders & Medications Prescriptions: No Action fluoxetine 20 mg capsule 20 mg PO DAILY Follow up/Referrals: Yumiko Mireles MD [Primary Care Provider, [facility]] Diet/Activity/Treatments Diet: Diet as Tolerated and Regular Skin/Wound/Dressing Care Report to your healthcare provider any signs of infection, such as:: chills, fever, increased pain, unusual drainage and unusual redness Visit Report/Discharge Packet Stand Alone Forms: Patient Portal/API, Stroke Signs & Symptoms Discharge Data Primary Care Provider: Yumiko Mireles Attending Provider: Marly Huitron Admit Date/Time: 12/16/24 07:30
[2024-12-16 09:46] VITALS: BP 118/88
--- NOTE | 2024-12-16 10:43 | P.HPOB_ITS ---
OB HPI Date/Time Date of admission: 12/16/24 Date Patient Seen: 12/16/24 Time Patient Seen: 07:30 History of Present Condition Chief complaint: INDUCTION CORDELL Calculator 2 Estimated Delivery Date Method Current WG Current Estimate 12/14/24 LMP (Certain) 40w 2d Other Estimates 12/15/24 Ultrasound #1 40w 1d Estimated Gestational Age (weeks): 40w2d : 4 Para: 1 care: good care Dating criteria OB: LMP confirmed by 1st trimester US Ultrasounds: normal mid trimester US Obstetrical complications: other (maternal anemia, maternal tobacco use (stopped at 15wks, NRT stopped at 22wga)) Medical complications OB: other (maternal class 2 obesity ) Indications Indication for induction OB: post dates (late term ) Preadmission Labs Last OB Lab Results: 2 Blood Type A Positive Today, 08:25 Antibody Screen Negative Today, 08:25 Hct, (36-46) 31.2 % L Today, 08:25 Hgb, (12.0-16.0) 10.7 g/dL L Today, 08:25 Hep Bs Antigen, (NEGATIVE) Negative s/c 05/12/24, 10: 24 Hepatitis C Antibody, (NEGATIVE) Negative s/c 4, 10:24 Rubella Antibody, (>15) 26.8 IU/mL 05/12/24, 10:24 VZV IgG Antibody, (Non Reactive) Reactive 4, 10:24 Glucose 1 Hr 50 gm, (76-139) 131 mg/dL 09/05/24, 1 0:20 Group B Strep (PCR) Neg for grp b strep 11/17/24, 10:49 -: Chlamydia screen: negative, Gonorrhea screen: negative and Urine: negative Genetic Screens: Cell-free DNA: Normal and Alpha-fetoprotein: Normal External Labs -: Urine: negative Prior (ies) Past Pregnancies Del. Date GA/Weeks Labor Lgth Wt Sex Route Outcome Anesthesia Place Delv Breastfeed Preg Comp Name 07/11/16 12 elective elective 07/15/17 ~10 elective 03/18/20 ~41 16 7 lb 4.757 oz Female vaginal live - full term [facility] 8 months none [place] Delivery Date: 07/11/16 Last Updated by: Evelyne Silva R.N. [place] Delivery Date: 07/15/17 Last Updated by: Lucia Augsut RN D&C, no complications Hx # Term Pregnancies: 1 Number of Living Children: 1 Elective abortions: 2 Evaluation Evaluation Baseline heart rate: 135 Variability: Moderate (11-25) monitor accelerations: Present Monitor Decelerations: Absent Category of Tracing: Reactive Status: Category l Dilation (cm): 3 Effacement (%): 50 Dilation: 3-4 cm Effacement: 40-50% station: -3 Position of cervix: posterior Consistency: soft Schmidt score: 5 Non-invasive Membranes Rupture Test: negative [facility] Medical History (Updated 12/14/24 @ 19:54 by Yumiko Mireles MD) Spontaneous vaginal delivery Anemia Surgical History (Updated 05/04/24 @ 15:40 by Lucia August RN) H/O dilation and curettage Hx of tonsillectomy (~2016) [place] teeth removed (~2014) Family History (Updated 05/04/24 @ 15:46 by Lucia August RN) Father Hyperlipidemia Hypertension Grandfather Bladder cancer Diabetes mellitus Hyperlipidemia Hypertension Grandmother Hypothyroidism Grandmother Alcoholism Grandfather Hyperlipidemia Hypertension Heavy smoker Depression Alcoholism Aunt Depression Aunt Lymphoma Social History marital status: unmarried,living together number of children: 1 (also s/o's son ~50% of the time) household members: children lives independently: Yes caregiver/support person: Yes housing: apartment pets and animals: Yes (X 2 dogs ) education level: high school 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[employer]) current occupational exposures/hazards: No special tanvi needs: No travel history: over 6 months ago seatbelt use: always water heater temp set < 120 deg: Yes working smoke detector in home: Yes fire extinguisher in home: Yes carbon monox detector in home: Yes firearms in home: No do you feel safe at home: Yes Smoking Status: Former smoker Tobacco: How many years used: 7 quit status: considering quitting (actively trying, down to 1-2 cigarettes/day) second hand exposure: Yes alcohol intake: former substance use type: marijuana during the past year weight has: other (lost w/ semaglutide, gained it back when stopped) well-balanced diet: about half the time daily servings fruits/ve-4 caffeine: Yes (aware of 200mg limit, discussed ) Type(s) of exercise: walking frequency: 1-2 times per week Meds Home Medications and Allergies Home Medications ?Medication ?Instructions ?Recorded ?Confirmed ?Type fluoxetine 20 mg capsule 20 mg PO DAILY 05/04/24 06/11/06 History Allergies Allergy/AdvReac Type Severity Reaction Status Date / Time No Known Drug Allergies Allergy Verified 12/16/24 09:56 Review of Systems Review of Systems ROS: Yes All systems reviewed with the patient and are negative except as otherwise documented OB Exam Vital signs Blood Pressure: 118/88 Pulse Rate: 98 HENMT Head: normal to inspection Resp Effort & Inspection: normal respiratory effort and able to speak in complete sentences Cardio Rate: regular rate Extremities Lower extremity: Yes normal to inspection GI Inspection: normal to inspection Palpation: Yes soft Other: gravid, niki cephalic 8# External Female Exam: Yes normal external appearance Objective Labs 12/16/24 08:25 Labs: Laboratory Results - last 24 hr 12/16/24 08:25 WBC 10.8 RBC 3.31 L Hgb 10.7 L Hct 31.2 L MCV 94.2 MCH 32.3 MCHC 34.3 RDW 14.9 H Plt Count 202 Neut % (Auto) 77.9 H Lymph % (Auto) 15.4 L [place] % (Auto) 5.2 Eos % (Auto) 0.9 L Baso % (Auto) 0.6 Neut # (Auto) 8400 H Lymph # (Auto) 1700 [place] # (Auto) 600 Eos # (Auto) 100 Baso # (Auto) 100 Blood Type A Positive Antibody Screen Negative Assessment and Plan Assessment and Plan Assessment and Plan narrative: 29yo at 40w2d d=9wk US presents for scheduled IOL at late term IOL, late term favorable cervix, /-3 Cat 1 tracing, maternal VSS/afebrile, GBS neg start pitocin augmentation, titrate to pattern with anticipated AROM thereafter PNL reviewed, noted asymptomatic chronic maternal anemia h/o maternal mood disorder, continue home fluoxetine 50mg daily expressed undesired fertility -- readdress following delivery, per Dr. Suh ok to post to OR tomorrow for procedure if pt desires patient is consented for vaginal, vaginal operative and delivery as well as transfusion of blood products as medically indicated Anticipate Time-Based Coding :: [TOTAL MINUTES] spent with patient and on the chart (including review of chart, obtaining history, exam, reviewing outside data, placing orders, documenting exam and treatment plan, and counseling patient) on [DATE].
[2024-12-16] MEDS: FLUoxetine 20 MG CAPSULE PO (11:39)
--- NOTE | 2024-12-16 13:37 | PM.OBPNLAB ---
Date/Time Date Patient Seen: 12/16/24 Time Patient Seen: 13:37 Pain Control Pain control: tolerating well and epidural Comments: pt states she is now comfortable with epidural, no sensation of pelvic pressure with contractions Pelvic Exam Dilation (cm): 6 Effacement (%): 100 station: 0 Amniotic membrane status: Ruptured Comments: scant return of clear fluid Contractions Pitocin rate (mU/min): 10 Contraction frequency (min): 3 Contraction phase: Resting Contraction intensity: Moderate Status status: Category l Heart Rate Baseline: 140 Monitor Accelerations: Present Monitor Decelerations: Absent Monitor Variability: Moderate Comments: cat 1 Assessment and Plan Assessment: active labor Plan: continuous present management Comments: AROM scant clear fluid interval SVE 4h, sooner PRN urge to push cont pitocin titration maternal VSS/afebrile, cat 1 tracing anticipate vaginal delivery
--- NOTE | 2024-12-16 14:13 | PM.AN.REGBLK ---
[facility]ional [facility] Pre-procedure PMH/ROS narrative: (TABx2) here for IOL currently in active labor with pitocin drip requesting epidural for labor pain Exam narrative: See pre-anesthesia document ASA Class: II Labs: Hct 31.2 % (36-46) L 12/16/24 08:25 Plt Count 202 X10^3/uL (150-400) 12/16/24 08:25 Medications: Current Medications Generic Name Dose Route Start Last Admin Trade Name Freq PRN Reason Stop Dose Admin Butorphanol Tartrate 0.5 mg 12/16/24 11:52 Butorphanol 1 Mg/Ml Vial IV 12/17/24 11:53 Q3HR PRN PRURITUS Carboprost Tromethamine 250 mcg 12/16/24 08:11 Carboprost 250 Mcg/Ml Ampul IM Q90M PRN Bleeding Diphenhydramine HCl 25 mg 12/16/24 11:52 Diphenhydramine 50 Mg/Ml Vial IV Q10M PRN Pruritis Ephedrine Sulfate 10 mg 12/16/24 11:52 Ephedrine 50 Mg/Ml Vial IV Q5M PRN Blood pressure decrease more than 20% of baseline. Fluoxetine HCl 20 mg 12/16/24 11:45 12/16/24 11:39 Fluoxetine 20 Mg Capsule PO 20 mg DAILY NAOMI Administration Oxytocin/Lactated Ringer's 30 unit in 500 mls @ 200 mls/hr 12/16/24 08:11 Oxytocin Premix IV CONT PRN Bleeding Protocol Tranexamic Acid 1,000 mg/ 100 mls @ 600 mls/hr 12/16/24 08:11 Sodium Chloride IV NOW PRN Bleeding Oxytocin/Lactated Ringer's 30 unit in 500 mls @ 2 mls/hr 12/16/24 08:15 12/16/24 08:46 Oxytocin Premix IV 2 milliunit/min TITRATE NAOMI 2 mls/hr Protocol Administration 2 MILLIUNIT/MIN Lactated Ringer's 1,000 mls @ 100 mls/hr 12/16/24 08:15 12/16/24 08:46 Lactated Ringers IV 12/16/24 18:14 100 mls/hr CONT NAOMI Administration FENT 2MCG/ML BUPIV 0.125% EPI 200 mcg in 100 mls @ 8 mls/hr 12/16/24 12:00 Fentanyl/Bupiv/Ns 2mcg/Ml - 0.125% EPIDURAL CONT NAOMI Lidocaine HCl 20 ml 12/16/24 08:11 Lidocaine 1% 20 Ml INJ INTRA-OP PRN Post Delivery Methylergonovine Maleate 0.2 mg 12/16/24 08:11 Methylergonovine 0.2 Mg Tablet PO Q6HR PRN Heavy Bleeding Methylergonovine Maleate 0.2 mg 12/16/24 08:11 Methylergonovine 0.2 Mg/Ml Vial IM NOW PRN Bleeding Mineral Oil 30 ml 12/16/24 08:11 Mineral Oil 30 Ml Udc TOP PRN PRN Version Misoprostol 800 mcg 12/16/24 08:11 Misoprostol 200 Mcg Tablet OR NOW PRN Bleeding Misoprostol 400 mcg 12/16/24 08:11 Misoprostol 200 Mcg Tablet SL NOW PRN Bleeding Nalbuphine HCl 2.5 mg 12/16/24 11:52 Nalbuphine 20 Mg/Ml Ampul IV Q10M PRN Pruritis Naloxone HCl 0.2 mg 12/16/24 08:11 Naloxone 0.4 Mg/Ml Vial IV Q2MIN PRN Opiate Reversal Naloxone HCl 0.4 mg 12/16/24 11:52 Naloxone 0.4 Mg/Ml Vial IV Q2MIN PRN Opiate Reversal Ondansetron HCl 4 mg 12/16/24 08:11 Ondansetron 4 Mg/2 Ml Inj IV Q4HR PRN Nausea And Vomiting Oxytocin 10 unit 12/16/24 08:11 Oxytocin 10 Unit/Ml Vial IM NOW PRN Bleeding Allergies: Allergies Allergy/AdvReac Type Severity Reaction Status Date / Time No Known Drug Allergies Allergy Verified 12/16/24 09:56 Procedure Insertion date: 12/16/24 Insertion time: 12:27 Prep/Local: betadine x3 (Chloraprep) and 1% lidocaine Interspace: L3-L4 Needle: 17 gauge Tuohy (27 ga pencan for CSE) Loss of resistance with: saline VERENICE at (cm): 7 Catheter placed at SKIN (cm): 15 Catheter in SPACE (cm): 8 Sensory level: t10 Insertion: Yes CSF, No Blood, No Paresthesia with insertion, No Paresthesia with injection and No Test dose reaction Initial Medications TEST DOSE time: 12:46 TEST DOSE: 1.5% lidocaine with epinephrine 1:200k (mL): 3 BOLUS DOSE time: 12:44 BOLUS DOSE (mL): 2 (50mcg fentanyl, 0.7ml 0.25% bupivacaine intrathecal) Infusion INFUSION: 0.125% bupivacaine and with fentanyl 2 mcg/mL Initial rate (mL/hr): 8 Subsequent interventions: 4ml Q15min PCEA Post-procedure Anesthesia date START: 12/16/24 Anesthesia time START: 12:27 Anesthesia date END: 12/16/24 Anesthesia time END: 15:00 Post-procedure Anesthesia Assessment: Yes CV function: HR/BP stable, Yes Resp function: RR/sat/airway adequate, Yes Post-op hydration adequate, Yes Pain control adequate, Yes Nausea & vomiting absent, Yes Temperature > 36 C, Yes Mental status appropriate and No Anesthesia complications
[2024-12-16] MEDS: miSOPROStoL 200 MCG TABLET 1000 MCG PR (15:18)
--- NOTE | 2024-12-16 15:48 | PM.OBPRVD ---
Events: Labor Induction (late term ) Labor & Delivery Delivery date: 12/16/24 Delivery Time: 15:00 Intrapartal Events: None Cervical ripening method: none Induction method: per pitocin protocol Delivery augmentation: rupture of membranes and pitocin Delivery monitor: external FHT Route of delivery: Episiotomy description: None L&D Laceration Description: None Estimated blood loss (mL): 200 Anesthesia Type: Epidural Complications: shoulder dystocia <30 seconds, resolved with McRobert's Narrative: patient in dorsal lithotomy position, c/c/+3 with strong urge to push. Excellent maternal expulsive efforts with descent of head to +4. Slow delivery of head in straight OA position, restitution to maternal L. Gentle downward traction applied without movement of anterior shoulder. Shoulder dystocia identified to staff, patient placed in McRobert's position and in tandem with maternal expulsive efforts downward traction again applied with delivery of anterior shoulder (total dystocia time <30s). Posterior shoulder and body delivered without difficulty and placed on maternal abdomen with noted excellent tone and vigorous cry after brief tactile stimulation. Delayed cord clamping x2min. Cord clamped x2 and cut by FOB; 3VC noted. Cord blood sample obtained. Active management of 3rd stage with delivery of placenta within 20min, inspected and noted to be intact. Perineal exam revealed no lacerations or abrasions. Fundal massage with good tone. 1000mg misoprostol placed per rectum for further PPH prophylaxis given rapidity of delivery (total second stage 8min). No complications. [place] Baby 1: Infant gender: Female Presentation: vertex Position: Left Occiput Transverse Placenta delivery description: Spontaneous Cord Vessel Description: 3 Vessels score (1 min): 7 score (5 min): 9 Plan for aftercare: Routine care
[2024-12-16 16:00] VITALS: BP 118/88; PULSE 98
[2024-12-16] MEDS: IBUPROFEN 600 MG TABLET PO (18:04)
--- NOTE | 2024-12-17 | PATH_ITS ---
[facility] Accession Number: [id number] No. of containers..01 Tissue . 01 Material submitted: . fallopian tube - BILATERAL FALLOPIAN TUBES . 01 Diagnosis: BILATERAL FALLOPIAN TUBES: Longer fallopian tube, complete cross-sections; negative for significant atypia. [place] fallopian tube, complete cross-sections; negative for significant atypia. [facility] 12/22/2024 0933 Local . 01 Electronically signed: . Bernie Orlando MD, Pathologist NPI- [id number] . 01 Gross description: . Received in formalin with two identifiers and bilateral fallopian tubes, are two unoriented fimbriated fallopian tubes, 8.4 cm in length by 1.0 cm in diameter and 7.5 cm in length by 1.0 cm in diameter. Both tubes have violaceous, smooth serosa with no cysts identified. The lumens are stellate and unremarkable. [employer] sections to include one-half of bisected fimbriae and cross sections are submitted as follows: . A1: Longer fallopian tube. A2: [place] fallopian tube. ([id number]) /MRV 12/18/2024 1355 Local . 01 Pathologist provided ICD-10: Z30.2 . 01 CPT . 881098 Specimen Comment: A courtesy copy of this report has been sent to [facility] Pathology Performed at: [address] [id number] MD Harry Rivera MD Phone: [phone]
[2024-12-17] MEDS: IBUPROFEN 600 MG TABLET PO (00:10)
[2024-12-17 08:28] LABS: Add Manual Diff / Slide Review NO; Basophils Absolute Auto 0 /uL (0-100); Basophils Percent Auto 0.3 % (0-2); Eosinophils Absolute Auto 100 /uL (0-450); Eosinophils Percent Auto 0.7 % (2-4); Hematocrit 31.9 % (36-46); Hemoglobin 10.9 g/dL (12.0-16.0); Lymphocytes Absolute Auto 1900 /uL (1100-4500); Lymphocytes Percent Auto 15.2 % (25-40); Mean Corpuscular HGB Conc 34.1 % (30-36); Mean Corpuscular Hemoglobin 32.4 PG (26-34); Mean Corpuscular Volume 95.1 fL (80-100); Monocytes Absolute Auto 400 /uL (0-900); Monocytes Percent Auto 3.5 % (3-14); Neutrophils Absolute Auto 10200 /uL (1500-7000); Neutrophils Percent Auto 80.3 % (50-75); Platelet Count 200 X10^3/uL (150-400); Red Blood Cell Count 3.35 X10^6/uL (4.0-5.2); White Blood Cell Count 12.7 X10^3/uL (4.5-11.0)
[2024-12-17] MEDS: ACETAMINOPHEN 325 MG TABLET 650 MG PO ×3 (08:31→22:42)
[2024-12-17] MEDS: FLUoxetine 20 MG CAPSULE PO (08:32)
--- NOTE | 2024-12-17 08:53 | PM.OBPN.1 ---
Subjective - OB Subjective Patient comments: no complaints and pain well controlled [place] baby status: doing well [place] feeding status: exclusively breast feeding Date Patient Seen: 12/17/24 Time Patient Seen: 08:15 Exam Vital Signs (past 8 hours): reviewed in OBIX, intermittent mild range blood pressures noted prior to delivery, none thus far Const General: healthy appearing, comfortable and No acute distress Resp Effort & Inspection: normal respiratory effort and able to speak in complete sentences Skin General: no rashes or lesions noted Neuro Cognition: normal cognition Speech: speech normal Extrem General: normal to inspection Psych Mood: congruent mood Affect: normal affect Objective Labs 12/17/24 08:06 Labs: Laboratory Results - last 24 hr 12/16/24 12/17/24 08:25 08:06 WBC 10.8 12.7 H RBC 3.31 L 3.35 L Hgb 10.7 L 10.9 L Hct 31.2 L 31.9 L MCV 94.2 95.1 MCH 32.3 32.4 MCHC 34.3 34.1 RDW 14.9 H 15.0 H Plt Count 202 200 Neut % (Auto) 77.9 H 80.3 H Lymph % (Auto) 15.4 L 15.2 L [place] % (Auto) 5.2 3.5 Eos % (Auto) 0.9 L 0.7 L Baso % (Auto) 0.6 0.3 Neut # (Auto) 8400 H 90390 H Lymph # (Auto) 1700 1900 [place] # (Auto) 600 400 Eos # (Auto) 100 100 Baso # (Auto) 100 0 Blood Type A Positive Antibody Screen Negative Assessment & Plan Assessment and Plan (1) Normal vaginal delivery: Status: Acute (2) Request for sterilization: Status: Acute (3) Anemia affecting : Status: Acute (4) Obesity affecting : Status: Acute (5) Mental disorder affecting , antepartum: Status: Acute (6) 40 weeks gestation of : Status: Acute Plan day: 1 plan OB: routine care Comments: 29yo [id number] PPD#1 s/p , doing well . -plan for salpingectomy this afternoon, patient is NPO as of 0700 -will plan for discharge either this evening or tomorrow morning, depending on how patient feels after the salpingectomy Time-Based Coding :: [20min] spent with patient and on the chart (including review of chart, obtaining history, exam, reviewing outside data, placing orders, documenting exam and treatment plan, and counseling patient) on [12/17/24].
--- NOTE | 2024-12-17 14:41 | PM.PREOP ---
Pre-operative Note Interval Note History & Physical reviewed/Exam performed by Physician: Yes Changes to H&P: No H&P completed within 30 days and has changed as indicated here:: Patient has been previously counseled regarding the procedure, and is certain that she wants to proceed. Surgical consent reviewed and signed today.
[2024-12-17] MEDS: CEFAZOLIN 2 GM/100 ML PREMIX 100 ML IV (16:10)
--- NOTE | 2024-12-17 16:23 | SUR.OPER ---
Supine on padded OR bed, head on pillow, arms secured on padded arm boards at <90 degrees abduction, legs uncrossed, safety belt at thigh, tape over blanket over lower legs.
[2024-12-17] MEDS: BUPIVACAINE LIPOSOME 266 MG/20 ML VIAL INJ (16:31)
[2024-12-17 17:15] VITALS: BP 119/63; PULSE 53; RESP 14; TEMP 37.3; O2SAT 100
--- NOTE | 2024-12-17 17:15 | P.OP_ITS ---
Operative Date/Time/Diagnoses Date of procedure: 12/17/24 Time of procedure: 16:30 Pre-op diagnosis: Undesired future fertility Post-op diagnosis: same Procedure & Clinicians Procedure: bilateral salpingectomy Same procedure as scheduled: Yes Indications: 29yo [id number] PPD#1 s/p , desiring sterilization via bilateral salpingectomy. Surgeon: Martina Suh Click Yes if Unassisted: Yes Anesthesia Type: Spinal Operative Notes Findings: Normal appearing bilateral fallopian tubes Specimen(s): other (bilateral fallopian tubes) Estimated Blood Loss (mL): 5 Blood products transfused: none Procedure in detail: The risks, benefits, indications, and alternatives of the procedure had previously been reviewed with the patient and informed consent was obtained. The patient was taken to the operating room where a spinal was obtained without difficulty. Patient was then prepped and draped in the usual sterile fashion and a carrington catheter was placed. SCDs were placed bilaterally for VTE prophylaxis.?She received 2g Ancef for surgical prophylaxis. ? An approximately 4cm transverse infraumbilical skin incision was then made with the scalpel. The incision was carried down through the underlying layer of fascia. The fascia was incised in the midline and extended laterally using the Kaur scissors. The fascial edges were tagged with 0-Vicryl. The peritoneum was then identified, tented up using hemostats, and entered sharply using Metzenbaum scissors. The peritoneum was noted to be free of any adhesions and the incision was then extended sharply. A small Darrick retractor was then placed. ? The patient?s left fallopian tube was palpated, grasped with a [place] clamp, and brought to the level of the abdominal incision. The tube was then followed out to its fimbriated end for confirmation. In a stepwise fashion, the left fallopian tube was removed from the fimbriated end to 1cm from the cornual end with ultimate excision of the fallopian tube using the Powerseal. The same procedure was performed on the patient?s right side to excise the right fallopian tube. Each pedicle was inspected and noted to be hemostatic prior to being returned to the abdomen. ? The peritoneum and fascia were then closed in a single running layer using 0 vicryl.??20cc of Exparel were injected into the subcutaneous and fascial tissues.??The skin was then closed using 4-0 Monocryl in a subcuticular fashion and covered with Dermabond.? ? At the completion of the case the sponge and needle counts were correct x2.??The patient tolerated the procedure well and was taken to recovery in stable condition. Complications: none Post-operative Condition: stable Disposition: PACU
[2024-12-17 17:17] VITALS: BP 126/69; PULSE 49; RESP 12; O2SAT 100
[2024-12-17 17:19] VITALS: BP 128/66; PULSE 51; RESP 14; O2SAT 99
[2024-12-17 17:27] VITALS: BP 119/52; PULSE 50; RESP 21; O2SAT 98
[2024-12-17] MEDS: KETOROLAC 30 MG/ML VIAL IV (22:42)
[2024-12-18] MEDS: ACETAMINOPHEN 325 MG TABLET 650 MG PO ×2 (05:11→11:18)
--- NOTE | 2024-12-18 09:10 | PM.OBDS.1 ---
Discharge Providers Provider Date of admission: 12/16/24 07:30 Discharge Date: 12/18/24 Primary care physician: Yumiko Mireles MD Consults: 12/16/24 08:12 Consult to Anesthesiology Urgent Comment: Consulting Provider: Anesthesiologist Reason for consultation: Epidural 12/17/24 15:46 Consult to Microbiology Instructor Routine Comment: 12/17/24 21:18 Consult to Microbiology Instructor Routine Comment: Discharge provider: Marly Huitron MD Summary Hospital Course Date Patient Seen: 12/18/24 Time Patient Seen: 07:15 Diagnoses: s/p , s/p bilateral salpingectomy Hospital Course: 29yo at 40w2d admitted for IOL at late term. Initial cervical exam favorable and IV pitocin initiated with progression to 6cm. AROM performed of clear fluid. Patient subsequently progressed to complete and had a very brief second stage (approximately 8min). Delivery of LBFI in cephalic presentation, <30s shoulder dystocia resolved with MacRobert's without sequelae. Pt underwent bilateral salpingectomy (Dr. Suh) on day 1 under spinal anesthesia for expressed desire of permanent surgical sterilization. Patient had an uncomplicated and postoperative course and was discharged to home on PPD2 meeting all discharge milestones. Peripartum Data Delivery Method: Natural Vaginal Laceration Description: None Episiotomy description: None Procedures: bilateral salpingectomy complications: none 1: Gender: Female Disposition of : home Discharge Diagnosis (1) Normal vaginal delivery: Status: Acute (2) Request for sterilization: Status: Resolved (3) Anemia affecting : Status: Acute (4) Obesity affecting : Status: Acute (5) Mental disorder affecting , antepartum: Status: Acute (6) 40 weeks gestation of : Status: Resolved Status at Discharge Cognitive/behavioral status at discharge: oriented Functional status at discharge: independent ambulation Overall status at discharge: patient is back to baseline Time Spent with Patient Time attestation: Total time spent providing and/or coordinating discharge services: Time spent: Less than 30 minutes Objective Labs 12/17/24 08:06 Exam Vital Signs (past 8 hours): Oxygen Delivery Method Room Air maternal VSS/afebrile, reviewed in OBIX Const General: cooperative, healthy appearing and comfortable Nutritional Appearance: obese Orientation: alert, awake and oriented x3 Limitations: mental status not altered HENMT Head: normal to inspection Resp Effort & Inspection: normal respiratory effort and able to speak in complete sentences Cardio Pulses: normal peripheral pulses GI Palpation: soft Other: infraumbilical incision with dermabond in place, mild appropriate postoperative tenderness without rebound/guarding Other: deferred Skin General: no rashes or lesions noted Neuro General: patient alert, patient awake and patient oriented x3 Extrem General: normal to inspection Psych Mental Status: mental status grossly normal Judgment: judgment good Discharge Plan Discharge Plan Patient Disposition: Home Provider Discharge Comment: no heavy lifting >10lbs (baby + carrier) for 6 weeks. Nothing in the vagina for 6 weeks - no tampons, intercourse, douching, swimming in fresh water/pools/hot tubs. Tub baths are ok if tub is cleaned well first. Discharge orders & Medications Prescriptions: New acetaminophen 325 mg Tablet 650 mg PO Q6H Qty: 30 0RF ibuprofen 600 mg Tablet 600 mg PO Q6H Qty: 30 0RF Continued fluoxetine 20 mg capsule 20 mg PO DAILY No Action oxycodone 5 mg tablet 5 mg PO Q4H PRN (Reason: Pain, Moderate (4-6)) Qty: 4 0RF Follow up/Referrals: Martina Suh DO [Physician, [employer]CHIE[employer]] Referral Note: Please follow up with your provider on December 25 at 2:15 pm for your one week incision check. Please follow up with your provider on January 29 at 8:30 am for your six week follow up appointment. Diet/Activity/Treatments Diet: Diet as Tolerated and Regular Skin/Wound/Dressing Care Report to your healthcare provider any signs of infection, such as:: chills, fever, increased pain, unusual drainage and unusual redness Visit Report/Discharge Packet Stand Alone Forms: Discharge: Care, Patient Portal/API, Stroke Signs & Symptoms Discharge Data Primary Care Provider: Yumiko Mireles
[2024-12-18] MEDS: FLUoxetine 20 MG CAPSULE PO (10:04)
[2024-12-18] MEDS: OXYCODONE IR 5 MG TABLET PO (10:05)
[2024-12-18] MEDS: IBUPROFEN 600 MG TABLET PO (11:17)
[2024-12-18 12:50] VITALS: BP 119/52; PULSE 50; RESP 21; TEMP 37.3
== END 2024-12-18 12:37 | disposition home or self-care (01) | DRG 798 ==
PROVIDERS: Obstetrics & Gynecology; Student in an Organized Health Care Education/Training Program; Admitting Provider Obstetrics & Gynecology; PCP Student in an Organized Health Care Education/Training Program; Referring Provider Obstetrics & Gynecology; Visit Provider Obstetrics & Gynecology
PROC: 0UB70ZZ Excision of Bilateral Fallopian Tubes, Open Approach (ICD-10-PCS; CPT 58605; principal; 2024-12-17 15:00)
DX: O48.0 Post-term pregnancy (principal); Z37.0 Single live birth; Z30.2 Encounter for sterilization; O99.214 Obesity complicating childbirth; Z3A.40 40 weeks gestation of pregnancy
CPT/HCPCS: 36415; 59025; 59050; 81001; 85025; 86850; 86900; 86901; 87086; G0379; J0666; J0690; J1885; J2405; J2590; J2704; J3010; S0191